=== PATIENT | male | born 1945 | race Caucasian/White ===

== ENCOUNTER 2019-09-08 16:59 | Observation (INO) ==
[2019-09-08] MEDS ORDERED: CEFEPIME 2,000 MG/20 ML VIAL IV STA (17:40)
[2019-09-08] MEDS ORDERED: SODIUM CHLORIDE 0.9% 500 ML IV ONE ×2 (17:40→20:05)
[2019-09-08] MEDS ORDERED: ACETAMINOPHEN 1,000 MG/100 ML VIAL IV STA (17:40)
--- NOTE | 2019-09-08 17:46 | Emergency Department Note ---
Impression & Plan Weakness, Fever, Atrial fibrillation, Bilateral leg pain ED Provider Note NAME: CHARLES JENNINGS AGE: 74 SEX: M : 1945 ARRIVES VIA: Ambulance INFORMANT: [Patient][ems, resident staff] ED PROVIDER(S): [Abraham Holloway MD] CHIEF COMPLAINT: Possible sepsis HISTORY OF PRESENT ILLNESS: The patient is a 74-year-old male who presents to the ER with weakness, a difficult time walking, pain in both his legs and fever. The patient was taken to the [place] [facility] on the , 3 days ago. He was sent to [facility] for atrial fibrillation. He was discharged today and upon arrival at his care facility, seemed to be very weak and achy and had a hard time walking. He was noted to have a fever. There was concern for sepsis so he was sent to the ED. Of note, he has tested negative for coronavirus very recently. The patient is a very poor historian. He complains of feet pain. He is unable to really answer questions appropriately. He does have dementia. Given the mental state, no further history obtainable. REVIEW OF SYSTEMS: Unobtainable given his mental state/dementia. PMHx/PSHx: See Below SOCIAL HISTORY: See Below. PHYSICAL EXAM: GENERAL: Patient is in no acute distress. HEENT: No acute trauma, normocephalic atraumatic, mucous membranes dry, no nasal congestion, no scleral icterus. NECK: No stridor, no adenopathy, no meningismus, trachea is midline. LUNGS: Clear to auscultation bilaterally when listening anterior, no wheeze, no rhonchi, breath sounds equal. HEART: Irregular rhythm, no murmurs, normal rate. ABDOMEN: Soft, nontender, bowel sounds positive, no hernias, no peritonitis. EXTREMITIES: No cyanosis or edema, full range of motion of all the joints without pain or difficulty, no signs for acute trauma. He does have bandages on both heels, there is no surrounding erythema. NEUROLOGIC: Awake and alert, no acute motor or sensory deficits, no focal weakness. No speech slur. Dementia noted. SKIN: No rash, no jaundice, no diaphoresis. Groin: There is no scrotal erythema, he is circumcised. DIFFERENTIAL DIAGNOSIS: Sepsis, UTI, pneumonia, metabolic, electrolyte abnormalities, coronavirus, cardiac sources, intracerebral event, toxicologic, neurologic, as well as other pathologies. EMERGENCY DEPARTMENT COURSE/PROCEDURES: ECG: Indication was weakness. The EKG shows atrial fibrillation with diffuse nonspecific ST change. There may be an old inferior infarct. The rate is 106. The QTc is 390. There is no ST elevation. No PVCs. No old EKGs to use for comparison. Continuous Cardiac Monitoring: An order was placed for continuous cardiac monitoring. The monitor shows a rate of 89 with atrial fibrillation. MEDICAL DECISION MAKING: There is no leukocytosis. The patient is anemic with a hemoglobin of 10.3. I have no baseline hemoglobin for comparison. There is a normal platelet count. No coagulopathy. There is no significant electrolyte abnormality or kidney failure. No worrisome liver enzyme elevation. Lactic acid level is not elevated making severe sepsis less likely. EKG shows A. fib, no acute ischemic change. Urinalysis does not show evidence for infection. Chest film did not show any pneumonia or CHF. Rapid coronavirus testing returned negative. The patient was given IV Tylenol, IV cefepime and IV saline, he is currently resting fairly comfortably. The cause for the fever is unclear. The patient is too weak to stand and seems to complain of bilateral leg pain. He is in no condition to be discharged back to his care facility. Further work-up for the fever is warranted. I did speak with the patient however, with his dementia, I am not certain he understood his findings. I did speak with case management. The on-call hospitalist has been consulted. As per the nursing staff, the patient's is aware of the patient's need for hospitalization. Past Med/Surg History Medical History Atrial fibrillation (Acute) Dementia Social History Feels Safe at Home: Yes Smoking Status: Unknown if ever smoked Allergies Allergies Allergy/AdvReac Type Severity Reaction Status Date / Time codeine Allergy Unknown Unverified 09/08/19 18:53 Home Meds Home Medications Medication Instructions Recorded Confirmed acetaminophen [Tylenol] 650 mg PO Q6H PRN 09/08/19 09/08/19 apixaban [Eliquis] 5 mg PO BID 09/08/19 09/08/19 atorvastatin [Lipitor] 40 mg PO HS 09/08/19 09/08/19 bisacodyl [Dulcolax (bisacodyl)] 10 mg [place] DAILY PRN 09/08/19 09/08/19 clobetasol [Temovate] 1 applic TOPICAL BID 09/08/19 09/08/19 digoxin [Digox] 125 mcg PO QAM 09/08/19 09/08/19 diltiazem HCl [Cardizem CD] 240 mg PO QAM 09/08/19 09/08/19 diphenhydramine HCl [Benadryl 25 mg PO TID PRN 09/08/19 09/08/19 Allergy] ferrous sulfate 325 mg PO QAM 09/08/19 09/08/19 folic acid 1 mg PO QAM 09/08/19 09/08/19 furosemide [Lasix] 40 mg PO QAM 09/08/19 09/08/19 ipratropium-albuterol 3 ml INHALATION Q4H PRN 09/08/19 09/08/19 memantine [Namenda] 5 mg PO BID 09/08/19 09/08/19 menthol-zinc oxide [Calmoseptine] 1 applic TOPICAL BID PRN 09/08/19 09/08/19 methotrexate sodium 15 mg PO SA 09/08/19 09/08/19 metoprolol succinate [Toprol XL] 50 mg PO QAM 09/08/19 09/08/19 multivitamin,[id number] 1 tab PO QAM 09/08/19 09/08/19 [Therems-M] niacinamide [Niacin (niacinamide)] 500 mg PO QAM 09/08/19 09/08/19 potassium chloride [K-Tab] 10 meq PO BID 09/08/19 09/08/19 Results & Data (ED) Vital Signs Vital Signs - 24 hr 09/08/19 17:02 09/08/19 17:07 09/08/19 17:10 Temperature Temperature Source Pulse Rate 102 H 102 H 105 H Pulse Rate from SpO2 Sensor 101 H 99 H 108 H Respiratory Rate 18 15 19 Respiratory Effort / Characteristics Respiratory Depth Blood Pressure 128/80 Blood Pressure Mean 91 Blood Pressure Position Pulse Oximetry 97 Oxygen Delivery Method Sepsis Recent Fever Within 48 Hours Sepsis New/Unexplained Change in Mental Status Sepsis Action Taken by Nursing 09/08/19 17:13 09/08/19 17:20 09/08/19 17:30 Temperature 37.8 C H Temperature Source Oral Pulse Rate 98 H 100 H 101 H Pulse Rate from SpO2 Sensor 102 H 100 H Respiratory Rate 18 19 20 Respiratory Effort / Characteristics Non-Labored Respiratory Depth Normal Blood Pressure 128/80 Blood Pressure Mean 96 Blood Pressure Position Lying Pulse Oximetry 96 97 97 Oxygen Delivery Method Room Air Sepsis Recent Fever Within 48 Hours Yes Sepsis New/Unexplained Change in Mental Status No Sepsis Action Taken by Nursing No Action Required 09/08/19 17:40 09/08/19 17:49 09/08/19 17:50 Temperature Temperature Source Pulse Rate 95 H 97 H Pulse Rate from SpO2 Sensor 99 H 95 H Respiratory Rate 20 21 Respiratory Effort / Characteristics Respiratory Depth Blood Pressure Blood Pressure Mean Blood Pressure Position Pulse Oximetry 96 97 96 Oxygen Delivery Method Room Air Sepsis Recent Fever Within 48 Hours Sepsis New/Unexplained Change in Mental Status Sepsis Action Taken by Nursing 09/08/19 18:00 09/08/19 18:01 09/08/19 18:10 Temperature Temperature Source Pulse Rate 92 H 101 H 92 H Pulse Rate from SpO2 Sensor 95 H 101 H 98 H Respiratory Rate 20 19 19 Respiratory Effort / Characteristics Respiratory Depth Blood Pressure 102/77 Blood Pressure Mean 84 Blood Pressure Position Pulse Oximetry 96 95 94 Oxygen Delivery Method Sepsis Recent Fever Within 48 Hours Sepsis New/Unexplained Change in Mental Status Sepsis Action Taken by Nursing 09/08/19 18:20 09/08/19 18:30 09/08/19 18:31 Temperature 37.1 C Temperature Source Pulse Rate 95 H 102 H 93 H Pulse Rate from SpO2 Sensor 89 Respiratory Rate 21 16 19 Respiratory Effort / Characteristics Respiratory Depth Blood Pressure 101/67 Blood Pressure Mean 77 Blood Pressure Position Pulse Oximetry 96 Oxygen Delivery Method Sepsis Recent Fever Within 48 Hours Sepsis New/Unexplained Change in Mental Status Sepsis Action Taken by Nursing 09/08/19 19:00 09/08/19 19:30 09/08/19 20:00 Temperature 37.0 C Temperature Source Pulse Rate 94 H 96 H 86 Pulse Rate from SpO2 Sensor 93 H 97 H 88 Respiratory Rate 16 22 17 Respiratory Effort / Characteristics Respiratory Depth Blood Pressure 102/70 111/74 108/74 Blood Pressure Mean 79 79 77 Blood Pressure Position Pulse Oximetry 95 95 97 Oxygen Delivery Method Sepsis Recent Fever Within 48 Hours Sepsis New/Unexplained Change in Mental Status Sepsis Action Taken by Nursing 09/08/19 20:30 09/08/19 21:00 09/08/19 21:01 Temperature Temperature Source Pulse Rate 81 84 89 Pulse Rate from SpO2 Sensor Respiratory Rate 19 20 14 Respiratory Effort / Characteristics Respiratory Depth Blood Pressure 101/67 115/82 Blood Pressure Mean 71 100 Blood Pressure Position Pulse Oximetry 95 96 Oxygen Delivery Method Sepsis Recent Fever Within 48 Hours Sepsis New/Unexplained Change in Mental Status Sepsis Action Taken by Nursing 09/08/19 21:30 09/08/19 21:41 09/08/19 22:00 Temperature Temperature Source Pulse Rate Pulse Rate from SpO2 Sensor 95 H Respiratory Rate 16 Respiratory Effort / Characteristics Respiratory Depth Blood Pressure 128/98 116/75 Blood Pressure Mean 103 83 Blood Pressure Position Pulse Oximetry 94 Oxygen Delivery Method Sepsis Recent Fever Within 48 Hours Sepsis New/Unexplained Change in Mental Status Sepsis Action Taken by Nursing 09/08/19 22:01 09/08/19 22:30 09/08/19 22:31 Temperature Temperature Source Pulse Rate 89 Pulse Rate from SpO2 Sensor Respiratory Rate 16 16 16 Respiratory Effort / Characteristics Respiratory Depth Blood Pressure 99/66 L Blood Pressure Mean 68 Blood Pressure Position Pulse Oximetry 95 Oxygen Delivery Method Sepsis Recent Fever Within 48 Hours Sepsis New/Unexplained Change in Mental Status Sepsis Action Taken by [facility] Medications Current Medication List: was personally reviewed by me Laboratory Data Attestation: I reviewed the patient's lab results. Result diagrams: 09/08/19 17:10 09/08/19 18:45 Lab Results 09/08/19 09/08/19 09/08/19 Range/Units 17:10 17:10 17:10 WBC 7.91 (4.8-10.8) K/uL RBC 3.51 L (4.7-6.1) M/uL Hgb 10.3 L (14.0-18.0) g/dL Hct 30.6 L (42-52) % MCV 87.2 (80-100) fL MCH 29.3 (25-34) pg MCHC 33.7 (32-36) g/dL RDW Std Deviation 47.5 H (36.4-46.3) fL RDW Coeff of Rashard 15.3 H (11.5-14.5) % Plt Count 269 (130-400) K/uL MPV 9.4 (7.4-10.4) fL Immature Gran % (Auto) 0.4 % Neut % (Auto) 77.3 % Lymph % (Auto) 9.5 % Cassia % (Auto) 12.3 % Eos % (Auto) 0.4 % Baso % (Auto) 0.1 % Immature Gran # (Auto) 0.03 H (0.00-0.02) K/uL Neut # (Auto) 6.12 (1.4-6.5) K/uL Lymph # (Auto) 0.75 L (1.2-3.4) K/uL Cassia # (Auto) 0.97 H (0.11-0.59) K/uL Eos # (Auto) 0.03 (0-0.5) K/uL Baso # (Auto) 0.01 (0-0.2) K/uL PT Cancelled INR Cancelled APTT Cancelled PTT Ratio Cancelled Sodium Cancelled Potassium Cancelled Chloride Cancelled Carbon Dioxide Cancelled Anion Gap Cancelled BUN Cancelled Creatinine Cancelled Est Cr Clr Drug Dosing Cancelled Est GFR ( Amer) Cancelled Est GFR (Non-Af Amer) Cancelled BUN/Creatinine Ratio Cancelled Glucose Cancelled Lactate (0.4-2.0) mmol/L Calcium Cancelled Magnesium Cancelled Total Bilirubin Cancelled AST Cancelled ALT Cancelled Alkaline Phosphatase Cancelled Troponin I Cancelled Total Protein Cancelled Albumin Cancelled Globulin Cancelled Albumin/Globulin Ratio Cancelled Procalcitonin Urine Color Urine Appearance (Clear) Urine pH (4.5-7.5) Ur Specific [place] (1.000-1.030) Urine Protein (Negative) Urine Glucose (UA) (Negative) Urine Ketones (Negative) Urine Blood (Negative) Urine Nitrite (Negative) Urine Bilirubin (Negative) Urine Urobilinogen (Negative) Ur Leukocyte Esterase (Negative) Urine WBC (Auto) (0-5) /hpf Urine RBC (Auto) (0-4) /hpf U Hyaline Cast (Auto) (0-5) /lpf U Epithel Cells (Auto) (0-5) /lpf Urine Bacteria (Auto) (Negative) COVID-19 PCR (Negative) 09/08/19 09/08/19 09/08/19 Range/Units 17:10 17:45 18:19 WBC (4.8-10.8) K/uL RBC (4.7-6.1) M/uL Hgb (14.0-18.0) g/dL Hct (42-52) % MCV (80-100) fL MCH (25-34) pg MCHC (32-36) g/dL RDW Std Deviation (36.4-46.3) fL RDW Coeff of Rashard (11.5-14.5) % Plt Count (130-400) K/uL MPV (7.4-10.4) fL Immature Gran % (Auto) % Neut % (Auto) % Lymph % (Auto) % Cassia % (Auto) % Eos % (Auto) % Baso % (Auto) % Immature Gran # (Auto) (0.00-0.02) K/uL Neut # (Auto) (1.4-6.5) K/uL Lymph # (Auto) (1.2-3.4) K/uL Cassia # (Auto) (0.11-0.59) K/uL Eos # (Auto) (0-0.5) K/uL Baso # (Auto) (0-0.2) K/uL PT INR APTT PTT Ratio Sodium Potassium Chloride Carbon Dioxide Anion Gap BUN Creatinine Est Cr Clr Drug Dosing Est GFR ( Amer) Est GFR (Non-Af Amer) BUN/Creatinine Ratio Glucose Lactate 0.8 (0.4-2.0) mmol/L Calcium Magnesium Total Bilirubin AST ALT Alkaline Phosphatase Troponin I Total Protein Albumin Globulin Albumin/Globulin Ratio Procalcitonin Cancelled Urine Color Dark Yellow Urine Appearance Clear (Clear) Urine pH 5.0 (4.5-7.5) Ur Specific [place] 1.022 (1.000-1.030) Urine Protein Trace H (Negative) Urine Glucose (UA) Negative (Negative) Urine Ketones 1+ H (Negative) Urine Blood Negative (Negative) Urine Nitrite Negative (Negative) Urine Bilirubin Negative (Negative) Urine Urobilinogen Negative (Negative) Ur Leukocyte Esterase Negative (Negative) Urine WBC (Auto) 1-5 (0-5) /hpf Urine RBC (Auto) 0-4 (0-4) /hpf U Hyaline Cast (Auto) 0 (0-5) /lpf U Epithel Cells (Auto) 0-5 (0-5) /lpf Urine Bacteria (Auto) Negative (Negative) COVID-19 PCR (Negative) 09/08/19 09/08/19 09/08/19 Range/Units 18:45 18:45 20:00 WBC (4.8-10.8) K/uL RBC (4.7-6.1) M/uL Hgb (14.0-18.0) g/dL Hct (42-52) % MCV (80-100) fL MCH (25-34) pg MCHC (32-36) g/dL RDW Std Deviation (36.4-46.3) fL RDW Coeff of Rashard (11.5-14.5) % Plt Count (130-400) K/uL MPV (7.4-10.4) fL Immature Gran % (Auto) % Neut % (Auto) % Lymph % (Auto) % Cassia % (Auto) % Eos % (Auto) % Baso % (Auto) % Immature Gran # (Auto) (0.00-0.02) K/uL Neut # (Auto) (1.4-6.5) K/uL Lymph # (Auto) (1.2-3.4) K/uL Cassia # (Auto) (0.11-0.59) K/uL Eos # (Auto) (0-0.5) K/uL Baso # (Auto) (0-0.2) K/uL PT 11.9 INR 1.1 APTT 35.5 H PTT Ratio 1.3 Sodium 133 L Potassium 4.0 Chloride 102 Carbon Dioxide 23 Anion Gap 8.0 BUN 15 Creatinine 0.59 L Est Cr Clr Drug Dosing Not Reportable Est GFR ( Amer) 114.8 Est GFR (Non-Af Amer) 99.0 BUN/Creatinine Ratio 25.2 H Glucose 96 Lactate (0.4-2.0) mmol/L Calcium 8.0 L Magnesium 2.0 Total Bilirubin 0.6 AST 17 ALT 15 Alkaline Phosphatase 67 Troponin I Total Protein 6.0 L Albumin 2.4 L Globulin 3.6 Albumin/Globulin Ratio 0.7 L Procalcitonin Urine Color Urine Appearance (Clear) Urine pH (4.5-7.5) Ur Specific [place] (1.000-1.030) Urine Protein (Negative) Urine Glucose (UA) (Negative) Urine Ketones (Negative) Urine Blood (Negative) Urine Nitrite (Negative) Urine Bilirubin (Negative) Urine Urobilinogen (Negative) Ur Leukocyte Esterase (Negative) Urine WBC (Auto) (0-5) /hpf Urine RBC (Auto) (0-4) /hpf U Hyaline Cast (Auto) (0-5) /lpf U Epithel Cells (Auto) (0-5) /lpf Urine Bacteria (Auto) (Negative) COVID-19 PCR NEGATIVE (Negative) Administered Medications Discontinued Medications Sodium Chloride (Nss) 500 mls @ 999 mls/hr IV .Q31M ONE Stop: 09/08/19 18:10 Last Infusion: 09/08/19 18:38 Dose: 0 mls/hr Documented by: [id number] Admin: 09/08/19 17:53 Dose: 999 mls/hr Documented by: [id number] Cefepime HCl (Maxipime) 2,000 mg in 20 mls @ 5 mls/min IV NOW STA; Protocol Stop: 09/08/19 17:43 Last Admin: 09/08/19 18:47 Dose: 5 mls/min Documented by: [id number] Acetaminophen (Ofirmev) 1,000 mg in 100 mls @ 400 mls/hr IV NOW STA Stop: 09/08/19 17:54 Last Infusion: 09/08/19 18:38 Dose: 0 mls/hr Documented by: [id number] Admin: 09/08/19 17:53 Dose: 400 mls/hr Documented by: [id number] Sodium Chloride (Nss) 500 mls @ 999 mls/hr IV .Q31M ONE Stop: 09/08/19 20:35 Last Infusion: 09/08/19 21:34 Dose: 0 mls/hr Documented by: [id number] Infusion: 09/08/19 20:22 Dose: 500 mls/hr Documented by: [id number] Admin: 09/08/19 20:21 Dose: 999 mls/hr Documented by: [id number] Imaging Data Radiologist's Impression: XR chest 1V portable HISTORY: 74 years-old Male SEPSIS acute sepsis COMPARISON: None TECHNIQUE: Portable AP view of the chest FINDINGS: Cardiac silhouette is mildly enlarged. Blunting of the costophrenic angles. No pneumothorax, large pleural effusion, overt pulmonary edema or airspace co nsolidation typical for pneumonia. Left shoulder rotator cuff calcific tendinosis. Degenerative changes of the shoulders and spine. IMPRESSION: 1. Cardiomegaly without overt pulmonary edema. 2. Blunting of the costophrenic angles may be secondary to trace effusions versus atelectasis/scarring. Blood Pressure Blood Pressure Findings: Normal blood pressure Blood Pressure Disposition: further management by hospitalist Discharge Plan Visit Data *Final* Discharge Date/Time: 09/08/19 23:57 Chief Complaint: Illness ED Provider: Abraham Holloway Discharge Problem: Weakness, Fever, Atrial fibrillation, Bilateral leg pain Patient Disposition: Admitted As Inpatient Condition: Fair Discharge Instructions Interventions: ED Discharge Assessment Last Done: 09/08/19 23:57 Discharge Problem: Fever Qualifiers: Fever type: unspecified Qualified Code(s): R50.9 - Fever, unspecified Atrial fibrillation Qualifiers: Atrial fibrillation type: unspecified Qualified Code(s): I48.91 - Unspecified atrial fibrillation
[2019-09-08 18:00] LABS: Basophils # (auto) 0.01 K/uL (0-0.2); Basophils % (auto) 0.1 %; Eosinophils # (auto) 0.03 K/uL (0-0.5); Eosinophils % (auto) 0.4 %; Hematocrit (blood only) 30.6 % (42-52); Hemoglobin 10.3 g/dL (14.0-18.0); Immature Granulocytes # (auto) 0.03 K/uL (0.00-0.02); Immature Granulocytes % (auto) 0.4 %; Lymphocytes # (auto) 0.75 K/uL (1.2-3.4); Lymphocytes % (auto) 9.5 %; Mean Corpuscular Hemoglobin 29.3 pg (25-34); Mean Corpuscular Hgb Conc 33.7 g/dL (32-36); Mean Corpuscular Volume 87.2 fL (80-100); Mean Platelet Volume 9.4 fL (7.4-10.4); Monocytes # (auto) 0.97 K/uL (0.11-0.59); Monocytes % (auto) 12.3 %; Neutrophils # (auto) 6.12 K/uL (1.4-6.5); Neutrophils % (auto) 77.3 %; Platelet Count 269 K/uL (130-400); RDW Coefficient of Variation 15.3 % (11.5-14.5); RDW Standard Deviation 47.5 fL (36.4-46.3); Red Blood Count 3.51 M/uL (4.7-6.1); White Blood Count 7.91 K/uL (4.8-10.8)
[2019-09-08 18:06] LABS: Appearance Urine Clear (Clear); Bacteria Urine Automated Negative (Negative); Bilirubin Urine Negative (Negative); Blood Urine Negative (Negative); Cast Urine Automated 0 /lpf (0-5); Color Urine Dark Yellow; Epithelial Cell Urine Auto 0-5 /lpf (0-5); Glucose Urine UA Negative (Negative); Ketones Urine 1+ (Negative); Leukocyte Esterase Urine Negative (Negative); Nitrite Urine Negative (Negative); Protein Urine Trace (Negative); RBC Urine Automated 0-4 /hpf (0-4); Specific Gravity Urine 1.022 (1.000-1.030); Urobilinogen Urine Negative (Negative)
--- NOTE | 2019-09-08 18:57 | XRay Report ---
XR chest 1V portable HISTORY: 74 years-old Male SEPSIS acute sepsis COMPARISON: None TECHNIQUE: Portable AP view of the chest FINDINGS: Cardiac silhouette is mildly enlarged. Blunting of the costophrenic angles. No pneumothorax, large pl eural effusion, overt pulmonary edema or airspace consolidation typical for pneumonia. Left shoulder rotator cuff calcific tendinosis. Degenerative changes of the shoulders and spine. IMPRESSION: 1. Cardiomegaly without overt pulmonary edema. 2. Blunting of the costophrenic angles may be secondary to trace effusions versus atelectasis/scarrin g. ACT 112: Negative or not required by law. The above report was generated using voice recognition software. It may contain grammatical, syntax o r spelling errors. Electronically signed by: Gary Rod M.D. 09/08/2019 6:55 PM
[2019-09-08 19:08] LABS: INR 1.1 (0.9-1.1); Partial Thromboplastin Ratio 1.3; Partial Thromboplastin Time 35.5 Seconds (21.0-31.0); Prothrombin Time 11.9 Seconds (9.0-12.0)
[2019-09-08 19:16] LABS: Alanine Aminotransferase 15 U/L (12-78); Albumin Level 2.4 gm/dl (3.4-5.0); Aspartate Aminotransferase 17 U/L (15-37); BUN Creatinine Ratio 25.2 (10-20); Blood Urea Nitrogen 15 mg/dl (7-18); Carbon Dioxide 23 mmol/L (21-32); Chloride 102 mmol/L (98-107); Est GFR (African American) 114.8; Glucose 96 mg/dl (70-99); Sodium 133 mmol/L (136-145)
[2019-09-08 19:19] LABS: Albumin Globulin Ratio 0.7 (0.9-2); Alkaline Phosphatase 67 U/L (45-117); Bilirubin,Total 0.6 mg/dl (0.2-1); Globulin 3.6 gm/dl (2.5-4.0)
[2019-09-09] MEDS ORDERED: ZOLPIDEM TARTRATE 5 MG TAB PO PRN (00:25)
[2019-09-09] MEDS ORDERED: ALBUT/IPRATROP 3MG/0.5MG NEB 3 ML VIAL INH PRN (00:25)
[2019-09-09] MEDS ORDERED: MAGNESIUM HYDROXIDE SUSP 30 ML UDC PO PRN (00:25)
[2019-09-09] MEDS ORDERED: ONDANSETRON INJ 2 MG/ML 2 ML VIAL IV PRN (00:25)
[2019-09-09] MEDS ORDERED: ALUMINUM/MAGNESIUM SUSP 30 ML UDC PO PRN (00:25)
[2019-09-09] MEDS ORDERED: POLYETHYLENE (MIRALAX) 17 GM PACK PO PRN (00:25)
--- NOTE | 2019-09-09 00:46 | History & Physical Report ---
Date of Service September 09, 2019 Assessment & Plan (1) Weakness: Mr. Fagan is a 74 yo male with underlying dementia who presented to [facility] after being discharged from [facility] today for re- evaluation of weakness and difficultly walking. - on admission patient had a fever of 37.8. He was mildly tachycardic (HR 105 bpm) and had one recorded RR > 20 - all vitals have since normalized (patient was given anti-pyretic) - there was initial concern for sepsis given the above findings and continued weakness - WBC normal. Lactate normal. Procal ordered. Blood cultures drawn - recommend contacting [facility] for blood culture results drawn on 09/05 - UA unremarkable - CXR showing no active disease - no cellulitis on skin exam - patient administered a dose of cefepime in the ED; we will hold off any further antibiotic therapy at this time given no obvious source of infection - repeat CBC in AM for continued surveillance of infectious process - suspicious that patient's weakness represents deconditioning rather than acute septic process. - PT/OT ordered (2) Fever: - Tmax 37.9 - normalized with Tylenol (3) Atrial fibrillation: - on chronic anticoagulation with Eliqus - continue home rate control regimen with Metoprolol 50mg qAM and diltiazem 240mg qAM - continue home digoxin 125 mcg (4) Dementia: - severity is unknown - continue home memantime Dispo: Med/Surg Diet: Heart Healthy DVT ppx: on Coumadin Code: DNR/DNI, per halfway documentation Admission and Anticipated Discharge Date Admission Date: September 08, 2019 History of Present Illness Primary Care Provider: Luciano Huerta Mr. Fagan is a 74 yo gentleman with a history of underlying dementia who presented to the ED for weakness and difficulty walking secondary to leg pain. Of note Mr. Fagan was taken to [place] ED 3 days ago and subsequently transferred to [facility] for management of A-fib with RVR. He was discharged from [facility] earlier today to his residence at [facility]. However, upon arrival to this facility, he was weak and unable to walk. Caregivers sent to him to [facility] with concern for sepsis. On review of records from [facility], patient's RVR was successfully treated with a diltiazem drip. His digoxin level at was drawn at 0.68. WBC was 6.33, blood cultures were obtained on 09/05. Head and C-spine CT showed no acute processes. XR of pelvis, left elbow and bilateral knees showed no acute pathology, although he does have bilateral knee osteoarthritis. Mr. Fagan was evaluated by physical therapy at [facility], who recommended SNF placement. However's patients insisted that he be discharged home to [facility]. 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 Fagan is a 2 assist to stand at baseline and stated they could provide appropriate care for him. ED course: Patient arrived with a temperature of 37.8 degrees celcius. He was tachycardic in the low 100s. COVID testing negative. WBC normal. Lactate 0.8. Blood cultures obtained. UA unremarkable. Hg 10.3, MCV 87. Na low at 133. CXR showing no acute process. EKG showing A-fib at 106. Allergies Allergy/AdvReac Type Severity Reaction Status Date / Time codeine Allergy Unknown Unverified 09/08/19 18:53 Home Medications Home Medications Medication Instructions Recorded Confirmed Type acetaminophen [Tylenol] 650 mg PO Q6H PRN 09/08/19 09/08/19 History apixaban [Eliquis] 5 mg PO BID 09/08/19 09/08/19 History atorvastatin [Lipitor] 40 mg PO HS 09/08/19 09/08/19 History bisacodyl [Dulcolax (bisacodyl)] 10 mg MA DAILY PRN 09/08/19 09/08/19 History clobetasol [Temovate] 1 applic TOPICAL BID 09/08/19 09/08/19 History digoxin [Digox] 125 mcg PO QAM 09/08/19 09/08/19 History diltiazem HCl [Cardizem CD] 240 mg PO QAM 09/08/19 09/08/19 History diphenhydramine HCl [Benadryl 25 mg PO TID PRN 09/08/19 09/08/19 History Allergy] ferrous sulfate 325 mg PO QAM 09/08/19 09/08/19 History folic acid 1 mg PO QAM 09/08/19 09/08/19 History furosemide [Lasix] 40 mg PO QAM 09/08/19 09/08/19 History ipratropium-albuterol 3 ml INHALATION Q4H PRN 09/08/19 09/08/19 History memantine [Namenda] 5 mg PO BID 09/08/19 09/08/19 History menthol-zinc oxide [Calmoseptine] 1 applic TOPICAL BID PRN 09/08/19 09/08/19 History methotrexate sodium 15 mg PO SA 09/08/19 09/08/19 History metoprolol succinate [Toprol XL] 50 mg PO QAM 09/08/19 09/08/19 History multivitamin,pw-uhwu-ddobgkel 1 tab PO QAM 09/08/19 09/08/19 History [Therems-M] niacinamide [Niacin (niacinamide)] 500 mg PO QAM 09/08/19 09/08/19 History potassium chloride [K-Tab] 10 meq PO BID 09/08/19 09/08/19 History Past Med/Surg History Medical History Atrial fibrillation (Acute) Dementia Social History Preferred Language: Citizen Of [place] Communication Ability: Impaired Beliefs That Will Affect Care: None marital status: Current Living Situation: Long Term Other Information That Helps Us Care for You: No Feels Safe at Home: Yes Safety Concerns: Feels Safe At This Time Smoking Status: Never smoker Hx Alcohol Use: No Hx Substance Use: No Review of Systems Review of Systems: Difficult to obtain due to cognitive status Integumentary: + pruritus Physical Exam Constitutional: WD/WN, vitals as above no acute distress Unable to engage in meaningful conversation. At times do not respond to questioning. Patient is itching various parts of his body throughout encounter Eyes: + anicteric sclerae ENMT: external ear and nose normal, oropharynx normal Ears: + hearing impairment Neck: normal visual inspection and trachea midline Respiratory: normal respiratory effort, lungs clear to auscultation Auscultation: no crackles Cardiovascular: Rate/Rhythm: + tachycardic and + irregularly irregular Heart Sounds: normal S1 and normal S2 Vessels: dorsalis pedis pulses present Extremities: no pedal edema Chest (Breasts): Chest: + abnormal inspection of chest (pectus excavatum ) Gastrointestinal (Abdomen): normal bowel sounds, soft, nontender, no hepatosplenomegaly Musculoskeletal: Extremities: extremities normal to inspection; no joint enlargement, leg not internally rotated, leg not externally rotated and no lower leg abnormality Skin: no rashes, warm and dry + nails discolored (+ scale in between toes) and + nails dystrophic + excoriations on b/l abdomen and in area of the body reachable by hands Results & Data Results & Data ([facility]) Vital Signs (Past 12 Hours) Vital Signs Temp Pulse Resp BP Pulse Ox 09/08/19 23:57 36.6 C 88 16 98 09/08/19 23:30 101 H 17 137/82 98 09/08/19 23:00 88 18 120/74 96 09/08/19 22:31 16 09/08/19 22:30 16 99/66 L 09/08/19 22:01 89 16 95 09/08/19 22:00 16 116/75 09/08/19 21:41 94 09/08/19 21:30 128/98 09/08/19 21:01 89 14 09/08/19 21:00 84 20 115/82 96 09/08/19 20:30 81 19 101/67 95 09/08/19 20:00 37.0 C 86 17 108/74 97 09/08/19 19:30 96 H 22 111/74 95 09/08/19 19:00 94 H 16 102/70 95 09/08/19 18:31 93 H 19 09/08/19 18:30 37.1 C 102 H 16 101/67 09/08/19 18:20 95 H 21 96 09/08/19 18:10 92 H 19 94 09/08/19 18:01 101 H 19 95 09/08/19 18:00 92 H 20 102/77 96 09/08/19 17:50 97 H 21 96 09/08/19 17:49 97 09/08/19 17:40 95 H 20 96 09/08/19 17:30 101 H 20 97 09/08/19 17:20 100 H 19 97 09/08/19 17:13 37.8 C H 98 H 18 128/80 96 09/08/19 17:10 105 H 19 97 09/08/19 17:07 102 H 15 09/08/19 17:02 102 H 18 128/80 Supervising Physician Co-Signing Physician Notes Attending addendum: I have physically seen this patient, have supervised the medical residents activities, and agree with the H&P unless as otherwise noted. Assessment and Plan: Febrile illness, generalized weakness and tachycardia/status post discharge from [facility] 2 boys earlier in the day- Follow urine cultures as noted and blood cultures. Given cefepime empirically in the ED. Monitor for any symptoms before additional device prescribed. Follow serial CBC with differential, chemistry profile and magnesium level. Assessment by PT/OT. Gentle rehydration with IV fluids Atrial fibrillation/hypertension- Continue metoprolol, diltiazem, digoxin and Eliquis. Check a digoxin level. Dementia- Continue memantine. Remainder of orders and notations as noted. Resident Activity Tracking Resident Involvement: Resident Care Provided Care Provided: Adult Hospital Medicine (1) Fever Fever type: unspecified Qualified Code(s): R50.9 - Fever, unspecified (2) Atrial fibrillation Atrial fibrillation type: unspecified Qualified Code(s): I48.91 - Unspecified atrial fibrillation
--- NOTE | 2019-09-09 06:55 | Electrocardiogram Report ---
Test Reason : Blood Pressure : / mmHG Vent. Rate : 106 BPM Atrial Rate : 117 BPM P-R Int : 000 ms QRS Dur : 074 ms QT Int : 294 ms P-R-T Axes : 000 270 077 degrees QTc Int : 390 ms Atrial fibrillation with rapid ventricular response Left axis deviation Inferior infarct Abnormal ECG No previous ECGs available Confirmed by Hussain Peck ([id number]) on 09/09/2019 6:55:36 AM Referred By: REFERRED SELF Confirmed By:Hussain Peck
[2019-09-09] MEDS: dilTIAZem HCL 240 MG CAPCR PO SCH (08:33)
[2019-09-09] MEDS: FUROSEMIDE 40 MG TAB PO SCH (08:33)
[2019-09-09] MEDS: POTASSIUM CHLORIDE 10 MEQ TABCR PO SCH ×2 (08:33→20:32)
[2019-09-09] MEDS: FOLIC ACID 1 MG TAB PO SCH (08:33)
[2019-09-09] MEDS: CLOBETASOL PROPIONATE 0.05% OINT 15 GM TUBE EXT SCH ×2 (08:34→20:31)
[2019-09-09] MEDS: METOPROLOL SUCC 50MG EXT REL TAB PO SCH (08:34)
[2019-09-09] MEDS: APIXABAN 5 MG TABLET PO SCH ×2 (08:34→20:32)
[2019-09-09] MEDS: MEMANTINE HCL 5 MG TAB PO SCH ×2 (08:34→20:32)
[2019-09-09] MEDS: FERROUS SULFATE 325 MG TAB PO SCH (08:34)
[2019-09-09] MEDS ORDERED: metHOTREXate sodium 2.5 MG TAB PO SCH (09:00)
[2019-09-09 09:19] LABS: Basophils # (auto) 0.02 K/uL (0-0.2); Basophils % (auto) 0.3 %; Eosinophils # (auto) 0.25 K/uL (0-0.5); Hematocrit (blood only) 30.6 % (42-52); Hemoglobin 10.3 g/dL (14.0-18.0); Immature Granulocytes # (auto) 0.02 K/uL (0.00-0.02); Immature Granulocytes % (auto) 0.3 %; Lymphocytes % (auto) 12.7 %; Mean Corpuscular Hemoglobin 29.9 pg (25-34); Mean Corpuscular Hgb Conc 33.7 g/dL (32-36); Mean Corpuscular Volume 88.7 fL (80-100); Mean Platelet Volume 9.2 fL (7.4-10.4); Monocytes # (auto) 0.87 K/uL (0.11-0.59); Monocytes % (auto) 13.8 %; Neutrophils # (auto) 4.36 K/uL (1.4-6.5); Neutrophils % (auto) 68.9 %; Platelet Count 263 K/uL (130-400); RDW Coefficient of Variation 15.2 % (11.5-14.5); RDW Standard Deviation 49.2 fL (36.4-46.3); Red Blood Count 3.45 M/uL (4.7-6.1); White Blood Count 6.32 K/uL (4.8-10.8)
--- NOTE | 2019-09-09 12:57 | Hospitalist Progress Note ---
Date of Service September 09, 2019 Assessment & Plan (1) Weakness: Mr. Fagan is a 74 yo male with underlying dementia who presented to [facility] after being discharged from [facility] today for re- evaluation of weakness and difficultly walking. - no signs of infection at this time, no further antibiotics planned, blood cultures will be followed - weakness likely due to deconditioning - left leg very weak, ask HIM to get records to know what was done, work up, treatment at [facility] - PT/OT ordered (2) Fever: - Tmax 37.9 - no further fever today, hold on further antibiotics (3) Atrial fibrillation: - on chronic anticoagulation with Eliqus - continue home rate control regimen with Metoprolol 50mg qAM and diltiazem 240mg qAM - continue home digoxin 125 mcg rates are well controlled, low 100's (4) Dementia: - severity is unknown - continue home memantime Dispo: Med/Surg Diet: Heart Healthy DVT ppx: on Coumadin Code: DNR/DNI, per senior care documentation plan for rehab Admission and Anticipated Discharge Date Admission Date: September 08, 2019 Subjective patient is confused at baseline tells me he is frustrated because he wants to get up and walk, he is just too weak he says he was at [facility] but cannot tell me why he cannot tell me where he lives, chart review shows that he is at SNF he was a [facility] for three days, then [facility] for afib, then discharged, came to ED for weakness low grade fever but no obvious signs of infection other than the weakness, he has no complaints he has a lot of weakness in left leg, cannot raise it up, he cannot tell me if this is new asked HIM to obtain discharge summary from [facility] to determine what work up/treatment he had there Review of Systems Review of Systems: Unobtainable due to cognitive status Physical Exam Constitutional: WD/WN, vitals as above Eyes: PERRL, conjunctivae normal, anicteric sclerae ENMT: external ear and nose normal, oropharynx normal Neck: trachea midline, no thyromegaly Respiratory: normal respiratory effort, lungs clear to auscultation Cardiovascular: Rate/Rhythm: + tachycardic and + irregularly irregular Heart Sounds: normal S1 and normal S2; no murmur Vessels: no JVD Extremities: normal capillary refill; no edema Gastrointestinal (Abdomen): normal bowel sounds, soft, nontender, no hepatosplenomegaly Musculoskeletal: Head/Neck/Chest: normocephalic, head atraumatic and neck supple Extremities: extremities normal to inspection and + abnormal strength (left leg weak, 3/5 strength, can wiggle toes); no cyanosis, no clubbing and no petechiae Skin: no rashes, warm and dry Neurologic: patellar DTR's 2+ bilat, sensation intact and PERRL, EOMI, accommodation nl, no face palsy, no dysarthria Psychiatric: Orientation: alert, oriented to person and cooperative; + not oriented to place and + not oriented to time Lymphatic: no cervical or axillary lymphadenopathy Results & Data Results & Data ([facility]) Vital Signs (Past 12 Hours) Vital Signs Temp Pulse Pulse Resp BP Pulse Ox 09/09/19 11:40 36.8 C 112 H 18 124/79 97 09/09/19 07:34 37.1 C 111 H 18 134/80 98 09/09/19 07:30 105 H 09/09/19 04:07 36.7 C 104 H 22 140/85 99 Laboratory Results Laboratory Results - last 24 hr 09/08/19 09/08/19 09/08/19 17:10 17:10 17:10 WBC 7.91 RBC 3.51 L Hgb 10.3 L Hct 30.6 L MCV 87.2 MCH 29.3 MCHC 33.7 RDW Std Deviation 47.5 H RDW Coeff of Rashard 15.3 H Plt Count 269 MPV 9.4 Immature Gran % (Auto) 0.4 Neut % (Auto) 77.3 Lymph % (Auto) 9.5 Barren % (Auto) 12.3 Eos % (Auto) 0.4 Baso % (Auto) 0.1 Immature Gran # (Auto) 0.03 H Neut # (Auto) 6.12 Lymph # (Auto) 0.75 L Barren # (Auto) 0.97 H Eos # (Auto) 0.03 Baso # (Auto) 0.01 PT Cancelled INR Cancelled APTT Cancelled PTT Ratio Cancelled Sodium Cancelled Potassium Cancelled Chloride Cancelled Carbon Dioxide Cancelled Anion Gap Cancelled BUN Cancelled Creatinine Cancelled Est Cr Clr Drug Dosing Cancelled Est GFR ( Amer) Cancelled Est GFR (Non-Af Amer) Cancelled BUN/Creatinine Ratio Cancelled Glucose Cancelled Lactate Calcium Cancelled Magnesium Cancelled Total Bilirubin Cancelled AST Cancelled ALT Cancelled Alkaline Phosphatase Cancelled Troponin I Cancelled Total Protein Cancelled Albumin Cancelled Globulin Cancelled Albumin/Globulin Ratio Cancelled Vitamin B12 Folate Procalcitonin Urine Color Urine Appearance Urine pH Ur Specific [place] Urine Protein Urine Glucose (UA) Urine Ketones Urine Blood Urine Nitrite Urine Bilirubin Urine Urobilinogen Ur Leukocyte Esterase Urine WBC (Auto) Urine RBC (Auto) U Hyaline Cast (Auto) U Epithel Cells (Auto) Urine Bacteria (Auto) Nasal Screen MRSA (PCR) COVID-19 PCR 09/08/19 09/08/19 09/08/19 17:10 17:45 18:19 WBC RBC Hgb Hct MCV MCH MCHC RDW Std Deviation RDW Coeff of Rashard Plt Count MPV Immature Gran % (Auto) Neut % (Auto) Lymph % (Auto) Barren % (Auto) Eos % (Auto) Baso % (Auto) Immature Gran # (Auto) Neut # (Auto) Lymph # (Auto) Barren # (Auto) Eos # (Auto) Baso # (Auto) PT INR APTT PTT Ratio Sodium Potassium Chloride Carbon Dioxide Anion Gap BUN Creatinine Est Cr Clr Drug Dosing Est GFR ( Amer) Est GFR (Non-Af Amer) BUN/Creatinine Ratio Glucose Lactate 0.8 Calcium Magnesium Total Bilirubin AST ALT Alkaline Phosphatase Troponin I Total Protein Albumin Globulin Albumin/Globulin Ratio Vitamin B12 Folate Procalcitonin Cancelled Urine Color Dark Yellow Urine Appearance Clear Urine pH 5.0 Ur Specific [place] 1.022 Urine Protein Trace H Urine Glucose (UA) Negative Urine Ketones 1+ H Urine Blood Negative Urine Nitrite Negative Urine Bilirubin Negative Urine Urobilinogen Negative Ur Leukocyte Esterase Negative Urine WBC (Auto) 1-5 Urine RBC (Auto) 0-4 U Hyaline Cast (Auto) 0 U Epithel Cells (Auto) 0-5 Urine Bacteria (Auto) Negative Nasal Screen MRSA (PCR) COVID-19 PCR 09/08/19 09/08/19 09/08/19 18:45 18:45 20:00 WBC RBC Hgb Hct MCV MCH MCHC RDW Std Deviation RDW Coeff of Rashard Plt Count MPV Immature Gran % (Auto) Neut % (Auto) Lymph % (Auto) Barren % (Auto) Eos % (Auto) Baso % (Auto) Immature Gran # (Auto) Neut # (Auto) Lymph # (Auto) Barren # (Auto) Eos # (Auto) Baso # (Auto) PT 11.9 INR 1.1 APTT 35.5 H PTT Ratio 1.3 Sodium 133 L Potassium 4.0 Chloride 102 Carbon Dioxide 23 Anion Gap 8.0 BUN 15 Creatinine 0.59 L Est Cr Clr Drug Dosing Not Reportable Est GFR ( Amer) 114.8 Est GFR (Non-Af Amer) 99.0 BUN/Creatinine Ratio 25.2 H Glucose 96 Lactate Calcium 8.0 L Magnesium 2.0 Total Bilirubin 0.6 AST 17 ALT 15 Alkaline Phosphatase 67 Troponin I Total Protein 6.0 L Albumin 2.4 L Globulin 3.6 Albumin/Globulin Ratio 0.7 L Vitamin B12 Folate Procalcitonin Urine Color Urine Appearance Urine pH Ur Specific [place] Urine Protein Urine Glucose (UA) Urine Ketones Urine Blood Urine Nitrite Urine Bilirubin Urine Urobilinogen Ur Leukocyte Esterase Urine WBC (Auto) Urine RBC (Auto) U Hyaline Cast (Auto) U Epithel Cells (Auto) Urine Bacteria (Auto) Nasal Screen MRSA (PCR) COVID-19 PCR NEGATIVE 09/09/19 09/09/19 09/09/19 00:36 00:36 08:32 WBC 6.32 RBC 3.45 L Hgb 10.3 L Hct 30.6 L MCV 88.7 MCH 29.9 MCHC 33.7 RDW Std Deviation 49.2 H RDW Coeff of Rashard 15.2 H Plt Count 263 MPV 9.2 Immature Gran % (Auto) 0.3 Neut % (Auto) 68.9 Lymph % (Auto) 12.7 Barren % (Auto) 13.8 Eos % (Auto) 4.0 Baso % (Auto) 0.3 Immature Gran # (Auto) 0.02 Neut # (Auto) 4.36 Lymph # (Auto) 0.80 L Barren # (Auto) 0.87 H Eos # (Auto) 0.25 Baso # (Auto) 0.02 PT INR APTT PTT Ratio Sodium Potassium Chloride Carbon Dioxide Anion Gap BUN Creatinine Est Cr Clr Drug Dosing Est GFR ( Amer) Est GFR (Non-Af Amer) BUN/Creatinine Ratio Glucose Lactate Calcium Magnesium Total Bilirubin AST ALT Alkaline Phosphatase Troponin I Total Protein Albumin Globulin Albumin/Globulin Ratio Vitamin B12 Folate 22.45 Procalcitonin 0.13 Urine Color Urine Appearance Urine pH Ur Specific [place] Urine Protein Urine Glucose (UA) Urine Ketones Urine Blood Urine Nitrite Urine Bilirubin Urine Urobilinogen Ur Leukocyte Esterase Urine WBC (Auto) Urine RBC (Auto) U Hyaline Cast (Auto) U Epithel Cells (Auto) Urine Bacteria (Auto) Nasal Screen MRSA (PCR) COVID-19 PCR 09/09/19 09/09/19 08:32 Unknown WBC RBC Hgb Hct MCV MCH MCHC RDW Std Deviation RDW Coeff of Rashard Plt Count MPV Immature Gran % (Auto) Neut % (Auto) Lymph % (Auto) Barren % (Auto) Eos % (Auto) Baso % (Auto) Immature Gran # (Auto) Neut # (Auto) Lymph # (Auto) Barren # (Auto) Eos # (Auto) Baso # (Auto) PT INR APTT PTT Ratio Sodium Potassium Chloride Carbon Dioxide Anion Gap BUN Creatinine Est Cr Clr Drug Dosing Est GFR ( Amer) Est GFR (Non-Af Amer) BUN/Creatinine Ratio Glucose Lactate Calcium Magnesium Total Bilirubin AST ALT Alkaline Phosphatase Troponin I Total Protein Albumin Globulin Albumin/Globulin Ratio Vitamin B12 1109 H Folate Procalcitonin Urine Color Urine Appearance Urine pH Ur Specific [place] Urine Protein Urine Glucose (UA) Urine Ketones Urine Blood Urine Nitrite Urine Bilirubin Urine Urobilinogen Ur Leukocyte Esterase Urine WBC (Auto) Urine RBC (Auto) U Hyaline Cast (Auto) U Epithel Cells (Auto) Urine Bacteria (Auto) Nasal Screen MRSA (PCR) Negative COVID-19 PCR Medications Administered Current Inpatient Medications Al Hydrox/Mg Hydrox/Simethicone (Maalox) 15 ml PO Q4H PRN PRN Reason: Dyspepsia Stop: 10/09/19 00:24 Albuterol (Duoneb) 3 ml INH Q4H PRN PRN Reason: Shortness Of Breath Or Wheezing Stop: 10/09/19 00:24 Apixaban (Eliquis) 5 mg PO BID DORIS Stop: 10/09/19 08:59 Last Admin: 09/09/19 08:34 Dose: 5 mg Documented by: Atorvastatin Calcium (Lipitor) 40 mg PO HS DORIS Stop: 10/09/19 20:59 Calamine/Phenol (Calmoseptine) 1 appln EXT BID PRN PRN Reason: Skin Irritation Stop: 10/09/19 00:24 Clobetasol Propionate (Clobetasol Propionate Oint) 1 appln EXT BID [facility] Stop: 10/09/19 08:59 Last Admin: 09/09/19 08:34 Dose: 1 appln Documented by: Digoxin (Lanoxin) 0.125 mg PO DAILY@1600 [facility] Stop: 10/09/19 15:59 Diltiazem HCl (Cardizem Cd) 240 mg [facility] [place] [facility] Stop: 10/09/19 08:59 Last Admin: 09/09/19 08:33 Dose: 240 mg Documented by: Diphenhydramine HCl (Benadryl Capsule) 25 mg PO TID PRN PRN Reason: Itching Stop: 10/09/19 00:48 Ferrous Sulfate (Feosol) 325 mg PO [facility] Stop: 10/09/19 08:59 Last Admin: 09/09/19 08:34 Dose: 325 mg Documented by: Folic Acid (Folvite) 1 mg PO QAM [facility] Stop: 10/09/19 08:59 Last Admin: 09/09/19 08:33 Dose: 1 mg Documented by: Furosemide (Lasix) 40 mg PO QAM [facility] Stop: 10/09/19 08:59 Last Admin: 09/09/19 08:33 Dose: 40 mg Documented by: Magnesium Hydroxide (Milk Of Magnesia) 30 ml PO Q12H PRN PRN Reason: Constipation Stop: 10/09/19 00:24 Memantine (Namenda) 5 mg PO BID [facility] Stop: 10/09/19 08:59 Last Admin: 09/09/19 08:34 Dose: 5 mg Documented by: Methotrexate (Methotrexate) 15 mg PO Sa@0900 [facility] Stop: 10/09/19 08:59 Last Admin: 09/09/19 08:34 Dose: 15 mg Documented by: Metoprolol Succinate (Toprol Xl) 50 mg PO QA[facility] [place] Stop: 10/09/19 08:59 Last Admin: 09/09/19 08:34 Dose: 50 mg Documented by: Ondansetron HCl (Zofran) 4 mg IV Q6H PRN PRN Reason: Nausea Stop: 10/09/19 00:24 Polyethylene Glycol (Miralax Powder Packet) 17 gm PO DAILY PRN PRN Reason: Constipation Stop: 10/09/19 00:24 Potassium Chloride (Klor-Con M10) 10 meq PO BID [facility] Stop: 10/09/19 08:59 Last Admin: 09/09/19 08:33 Dose: 10 meq Documented by: Zolpidem Tartrate (Ambien) 5 mg PO HS PRN PRN Reason: Sleep Stop: 10/09/19 00:24 PG Care Time/CCT Total # of Minutes Spent Total Time Spent with Patient: Total time spent is greater than 50% in coordination of care (as documented) at patient's floor/unit and/or counseling patient: Coding Level of Care Code 38229 Subseq Hosp Care Lvl 2 Diagnoses Weakness R53.1 Fever R50.9 Fever type: unspecified Atrial fibrillation I48.91 Atrial fibrillation type: unspecified Dementia F03.90 (1) Fever Fever type: unspecified Qualified Code(s): R50.9 - Fever, unspecified (2) Atrial fibrillation Atrial fibrillation type: unspecified Qualified Code(s): I48.91 - Unspecified atrial fibrillation
[2019-09-09] MEDS: DIGOXIN 0.125 MG TAB PO SCH (15:44)
[2019-09-09] MEDS: MENTHOL-ZINC OXIDE 360 APPLN/120 GM TUBE EXT PRN (20:31)
[2019-09-09] MEDS: ATORVASTATIN 40 MG TAB PO SCH (20:32)
--- NOTE | 2019-09-09 22:53 | Billing Data ---
Date of Service September 09, 2019 Coding Level of Care Code 46245 Initial Inpt Care Lvl 2
[2019-09-10 07:03] LABS: Hematocrit (blood only) 33.3 % (42-52); Hemoglobin 10.9 g/dL (14.0-18.0); Mean Corpuscular Hemoglobin 28.8 pg (25-34); Mean Corpuscular Hgb Conc 32.7 g/dL (32-36); Mean Corpuscular Volume 88.1 fL (80-100); Mean Platelet Volume 8.7 fL (7.4-10.4); Platelet Count 286 K/uL (130-400); RDW Coefficient of Variation 15.1 % (11.5-14.5); RDW Standard Deviation 47.9 fL (36.4-46.3); Red Blood Count 3.78 M/uL (4.7-6.1); White Blood Count 7.36 K/uL (4.8-10.8)
[2019-09-10 07:46] LABS: BUN Creatinine Ratio 18.7 (10-20); Calcium 8.6 mg/dl (8.5-10.1); Creatinine Clr Calc Pharmacy 101.4 ml/min; Est GFR (African American) 116.4; Est GFR (Non-African American) 100.4; Potassium 3.5 mmol/L (3.5-5.1)
[2019-09-10] MEDS: MEMANTINE HCL 5 MG TAB PO SCH ×2 (08:05→19:51)
[2019-09-10] MEDS: APIXABAN 5 MG TABLET PO SCH ×2 (08:05→19:51)
[2019-09-10] MEDS: dilTIAZem HCL 240 MG CAPCR PO SCH (08:06)
[2019-09-10] MEDS: FOLIC ACID 1 MG TAB PO SCH (08:06)
[2019-09-10] MEDS: POTASSIUM CHLORIDE 10 MEQ TABCR PO SCH ×2 (08:06→19:51)
[2019-09-10] MEDS: METOPROLOL SUCC 50MG EXT REL TAB PO SCH (08:06)
[2019-09-10] MEDS: MENTHOL-ZINC OXIDE 360 APPLN/120 GM TUBE EXT PRN (08:06)
[2019-09-10] MEDS: FERROUS SULFATE 325 MG TAB PO SCH (08:07)
[2019-09-10] MEDS: FUROSEMIDE 40 MG TAB PO SCH (08:08)
[2019-09-10] MEDS: CLOBETASOL PROPIONATE 0.05% OINT 15 GM TUBE EXT SCH ×2 (08:08→19:50)
[2019-09-10] MEDS ORDERED: KETOROLAC TROMETHAMINE 15 MG/ML VIAL IV ONE (10:45)
--- NOTE | 2019-09-10 12:46 | XRay Report ---
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 Dystrophic calcification s are noted adjacent to the ischial tuberosities/hamstring attachment sites. There is mild lateral hi p soft tissue swelling. No acute fracture, dislocation, opaque foreign body or avascular necrosis. IMPRESSION: Soft tissue swelling without acute fracture or dislocation. ACT 112: Negative or not required by law. The above report was generated using voice recognition software. It may contain grammatical, syntax o r spelling errors. Electronically signed by: Gary Rod M.D. 09/10/2019 12:45 PM
--- NOTE | 2019-09-10 15:27 | Hospitalist Progress Note ---
Date of Service September 10, 2019 Assessment & Plan (1) Weakness: Mr. Fagan is a 74 yo male with underlying dementia who presented to [facility] after being discharged from [facility] for re- evaluation of weakness and difficultly walking. - no signs of infection at this time, no further antibiotics planned, blood cultures will be followed - weakness likely due to deconditioning and arthritic pain - at [facility], he was treated for afib RVR after having unwitnessed fall at his personal care facility CT head negative, CT cervical spine negative for fracture X-ray of both knees, left elbow and pelvis/hips negative for fracture here he has pain in left hip and left leg too tender to move, repeat x-ray left hip shows no fracture pain control with toradol, has a listed allergy to Codeine, try to avoid narcotics if possible PT/OT consulted, plan for SNF rehab prior to going to personal group home in [place] (2) Fever: - Tmax 37.9, today it is 37.7 - WBC normal, no evidence of infection on work up in the ED - no further antibiotics planned (3) Atrial fibrillation: - on chronic anticoagulation with Eliqus - continue home rate control regimen with Metoprolol 50mg qAM and diltiazem 240mg qAM - continue home digoxin 125 mcg rates are well controlled, low 100's (4) Dementia: - severity is unknown - continue home memantime Dispo: Med/Surg Diet: Heart Healthy DVT ppx: on Coumadin Code: DNR/DNI, per residential documentation plan for rehab, CM discussed with his Gwendolyn, referrals made to several facilities Admission and Anticipated Discharge Date Admission Date: September 08, 2019 Subjective reviewed records sent from [facility]: patient had unwitnessed fall at his personal care facility in [place] in the ED at [place] he had afib with RVR, treated with Diltiazem bolus and drip and transferred to [facility] converted to Diltiazem 240mg PO daily for rate control he had CT head, CT cervical spine, x-ray of the pelvis and x-rays of both knees and x-ray of elbow, no fractures seen therapy at [facility] recommended SNF rehab and physician wanted rehab, but his wanted him discharged to personal care once at personal [facility] he was too weak and he was sent here, unsure whey he was not sent to [place] since he was just at their facility today he continues to c/o pain in knees, hips, elbows, says he is too weak to move not much else can be obtained in terms of history due to dementia on exam he is tender in left hip, hurts with log rolling -- x-ray left hip/pelvis negative for fracture Review of Systems Review of Systems: Unobtainable due to cognitive status (dementia, just says he wants to walk but can't, hurts all over) Physical Exam Constitutional: WD/WN, vitals as above Eyes: PERRL, conjunctivae normal, anicteric sclerae ENMT: external ear and nose normal, oropharynx normal Neck: trachea midline, no thyromegaly Respiratory: normal respiratory effort, lungs clear to auscultation Cardiovascular: Rate/Rhythm: regular rate and + irregularly irregular Heart Sounds: normal S1 and normal S2; no murmur Vessels: no JVD Extremities: normal capillary refill; no edema Gastrointestinal (Abdomen): normal bowel sounds, soft, nontender, no hepatosplenomegaly Musculoskeletal: Head/Neck/Chest: normocephalic, head atraumatic and neck supple Extremities: extremities normal to inspection and + abnormal strength (left leg weak, 3/5 strength, can wiggle toes); no cyanosis, no clubbing and no petechiae Hip: + limited ROM of hip (both hips, due to pain) Knee: + limited ROM of knee (due to pain); no effusion and no skin erythema Skin: no rashes, warm and dry Neurologic: patellar DTR's 2+ bilat, sensation intact and PERRL, EOMI, accommodation nl, no face palsy, no dysarthria Psychiatric: Orientation: alert, oriented to person and cooperative; + not oriented to place and + not oriented to time Lymphatic: no cervical or axillary lymphadenopathy Results & Data Results & Data ([facility]) Vital Signs (Past 12 Hours) Vital Signs Temp Pulse Pulse Resp BP Pulse Ox 09/10/19 11:06 37.7 C H 92 H 20 122/68 92 09/10/19 07:52 36.7 C 103 H 18 143/90 H 97 09/10/19 07:35 96 H 09/10/19 03:52 36.9 C 99 H 18 128/81 93 Laboratory Results Laboratory Results - last 24 hr 09/10/19 09/10/19 06:53 06:53 WBC 7.36 RBC 3.78 L Hgb 10.9 L Hct 33.3 L MCV 88.1 MCH 28.8 MCHC 32.7 RDW Std Deviation 47.9 H RDW Coeff of Rashard 15.1 H Plt Count 286 MPV 8.7 Sodium 134 L Potassium 3.5 Chloride 100 Carbon Dioxide 28 Anion Gap 5.0 BUN 11 Creatinine 0.57 L Est Cr Clr Drug Dosing 101.4 Est GFR ( Amer) 116.4 Est GFR (Non-Af Amer) 100.4 BUN/Creatinine Ratio 18.7 Glucose 117 H Calcium 8.6 Medications Administered Current Inpatient Medications Al Hydrox/Mg Hydrox/Simethicone (Maalox) 15 ml PO Q4H PRN PRN Reason: Dyspepsia Stop: 10/09/19 00:24 Albuterol (Duoneb) 3 ml INH Q4H PRN PRN Reason: Shortness Of Breath Or Wheezing Stop: 10/09/19 00:24 Apixaban (Eliquis) [address] [facility] Stop: 10/09/19 08:59 Last Admin: 09/10/19 08:05 Dose: 5 mg Documented by: Atorvastatin Calcium (Lipitor) [address] [facility] Stop: 10/09/19 20:59 Last Admin: 09/09/19 20:32 Dose: 40 mg Documented by: Calamine/Phenol (Calmoseptine) 1 appln EXT BID PRN PRN Reason: Skin Irritation Stop: 10/09/19 00:24 Last Admin: 09/10/19 08:06 Dose: 1 appln Documented by: Clobetasol Propionate (Clobetasol Propionate Oint) [address] [facility] Stop: 10/09/19 08:59 Last Admin: 09/10/19 08:08 Dose: 1 appln Documented by: Digoxin (Lanoxin) 0.125 mg PO DAILY@1600 [facility] Stop: 10/09/19 15:59 Last Admin: 09/09/19 15:44 Dose: 0.125 mg Documented by: Diltiazem HCl (Cardizem Cd) [address] [facility] Stop: 10/09/19 08:59 Last Admin: 09/10/19 08:06 Dose: 240 mg Documented by: Diphenhydramine HCl (Benadryl Capsule) 25 mg PO TID PRN PRN Reason: Itching Stop: 10/09/19 00:48 Last Admin: 09/10/19 11:30 Dose: 25 mg Documented by: Ferrous Sulfate (Feosol) [address] [facility] Stop: 10/09/19 08:59 Last Admin: 09/10/19 08:07 Dose: 325 mg Documented by: Folic Acid (Folvite) [address] [facility] Stop: 10/09/19 08:59 Last Admin: 09/10/19 08:06 Dose: 1 mg Documented by: Furosemide (Lasix) [address] [facility] Stop: 10/09/19 08:59 Last Admin: 09/10/19 08:08 Dose: 40 mg Documented by: Magnesium Hydroxide (Milk Of Magnesia) 30 ml PO Q12H PRN PRN Reason: Constipation Stop: 10/09/19 00:24 Memantine (Namenda) [address] [facility] Stop: 10/09/19 08:59 Last Admin: 09/10/19 08:05 Dose: 5 mg Documented by: Methotrexate (Methotrexate) 15 mg PO Sa@0900 [facility] Stop: 10/09/19 08:59 Last Admin: 09/09/19 08:34 Dose: 15 mg Documented by: Metoprolol Succinate (Toprol Xl) [address] [facility] Stop: 10/09/19 08:59 Last Admin: 09/10/19 08:06 Dose: 50 mg Documented by: Ondansetron HCl (Zofran) 4 mg IV Q6H PRN PRN Reason: Nausea Stop: 10/09/19 00:24 Polyethylene Glycol (Miralax Powder Packet) 17 gm PO DAILY PRN PRN Reason: Constipation Stop: 10/09/19 00:24 Potassium Chloride (Klor-Con M10) [address] [facility] Stop: 10/09/19 08:59 Last Admin: 09/10/19 08:06 Dose: 10 meq Documented by: Zolpidem Tartrate (Ambien) 5 mg PO HS PRN PRN Reason: Sleep Stop: 10/09/19 00:24 PG Care Time/CCT Total # of Minutes Spent Total Time Spent with Patient: Total time spent is greater than 50% in coordination of care (as documented) at patient's floor/unit and/or counseling patient: Coding Level of Care Code 67517 Subseq Hosp Care Lvl 2 Diagnoses Weakness R53.1 Fever R50.9 Fever type: unspecified Atrial fibrillation I48.91 Atrial fibrillation type: unspecified Dementia F03.90 (1) Fever Fever type: unspecified Qualified Code(s): R50.9 - Fever, unspecified (2) Atrial fibrillation Atrial fibrillation type: unspecified Qualified Code(s): I48.91 - Unspecified atrial fibrillation
[2019-09-10] MEDS: DIGOXIN 0.125 MG TAB PO SCH (17:02)
[2019-09-10] MEDS: ATORVASTATIN 40 MG TAB PO SCH (19:51)
--- NOTE | 2019-09-11 07:06 | XRay Report ---
XR elbow RT 2V CLINICAL HISTORY: Right elbow pain and swelling COMPARISON: None DISCUSSION: There is a small joint effusion. No fractures are visualized. There is chondrocalcinosis. There is olecranon spur. There is mild olecranon soft tissue swelling. IMPRESSION: 1. Small effusion 2. No acute fractures 3. Soft tissue swelling ACT 112: Negative or not required by law. Electronically signed by: Amari Garcia M.D. 09/11/2019 7:04 AM
[2019-09-11 07:44] LABS: Hematocrit (blood only) 31.8 % (42-52); Mean Corpuscular Hemoglobin 27.6 pg (25-34); Mean Corpuscular Hgb Conc 31.4 g/dL (32-36); Mean Corpuscular Volume 87.8 fL (80-100); Mean Platelet Volume 9.5 fL (7.4-10.4); Platelet Count 335 K/uL (130-400); RDW Standard Deviation 48.1 fL (36.4-46.3); Red Blood Count 3.62 M/uL (4.7-6.1); White Blood Count 7.42 K/uL (4.8-10.8)
[2019-09-11 08:25] LABS: BUN Creatinine Ratio 24.9 (10-20); Calcium 8.5 mg/dl (8.5-10.1); Creatinine Clr Calc Pharmacy 95.5 ml/min; Est GFR (African American) 113.2; Est GFR (Non-African American) 97.7; Potassium 3.5 mmol/L (3.5-5.1)
[2019-09-11] MEDS: dilTIAZem HCL 240 MG CAPCR PO SCH (09:36)
[2019-09-11] MEDS: FERROUS SULFATE 325 MG TAB PO SCH (09:36)
[2019-09-11] MEDS: FOLIC ACID 1 MG TAB PO SCH (09:36)
[2019-09-11] MEDS: POTASSIUM CHLORIDE 10 MEQ TABCR PO SCH ×2 (09:37→20:28)
[2019-09-11] MEDS: FUROSEMIDE 40 MG TAB PO SCH (09:37)
[2019-09-11] MEDS: METOPROLOL SUCC 50MG EXT REL TAB PO SCH (09:37)
[2019-09-11] MEDS: MEMANTINE HCL 5 MG TAB PO SCH ×2 (09:38→20:28)
[2019-09-11] MEDS: APIXABAN 5 MG TABLET PO SCH ×2 (09:38→20:29)
[2019-09-11] MEDS: CLOBETASOL PROPIONATE 0.05% OINT 15 GM TUBE EXT SCH ×2 (09:39→20:34)
[2019-09-11] MEDS: ACETAMINOPHEN 500 MG TAB PO PRN (13:03)
--- NOTE | 2019-09-11 13:31 | Hospitalist Progress Note ---
Date of Service September 11, 2019 Assessment & Plan (1) Weakness: Mr. Fagan is a 74 yo male with underlying dementia, bullous pemphigoid, chronic atrial fibrillation, hyperlipidemia who presented to [facility] after being discharged from [facility] for re-evaluation of weakness and difficulty walking with a recent fall and admission for rapid atrial fibrillation. He was also noted to have a low-grade fever upon admission. - no source of infection found on admission, however his right elbow is red and swollen and with painful range of motion, ESR greater than 90, CRP elevated 18. See below under elbow pain -Blood cultures will be followed here and from [facility] - weakness likely due to deconditioning and arthritic pain - at [facility], he was treated for afib RVR after having unwitnessed fall at his personal care facility CT head negative, CT cervical spine negative for fracture X-ray of both knees, left elbow and pelvis/hips negative for fracture here he has pain in left hip and left leg too tender to move, repeat x-ray left hip shows no fracture pain control with toradol, and will add aspirin -Has a listed allergy to Codeine, try to avoid narcotics if possible PT/OT consulted, plan for SNF rehab prior to going to personal residential in [place] (2) Elbow pain, right: With exquisite pain and worsening swelling and erythema of the right elbow with dependent 3+ edema on the right hand With painful range of motion X-rays negative for fracture but showed joint effusion and soft tissue edema ESR greater than 90, CRP elevated at 18 Concern for septic arthritis versus hematoma given that he is on Eliquis versus occult fracture Uric acid is normal at 4, no history of gout -Consulted orthopedic surgery-awaiting further recommendations -Order MRI of the right elbow with and without contrast to assess for either occult fracture or signs of infection -Add acetaminophen for pain control -Start icing to the elbow 3 times daily -Follow ESR and CRP (3) Fever: - Tmax 37.9 on day of admission and now improved Did receive 1 dose of IV cefepime upon admission but none since then - WBC normal, no evidence of infection on work up in the ED, however with elevat ed sed rate and CRP and possible infection of the right elbow as above - no further antibiotics planned for now -Follow blood cultures -COVID 19 test is negative -Check Lyme titer given multiple painful joints (4) Atrial fibrillation: Chronic atrial fibrillation With uncontrolled rates in the low 100s during the day - on chronic anticoagulation with Eliqus-continue such -Will increase metoprolol to 75 mg qAM for improved rate control -Continue diltiazem 240mg qAM and home digoxin 125 mcg once daily (5) Bullous pemphigoid: Much improved compared to description and previous scanned in primary care notes Follows with dermatology as an outpatient -Continue home dose of methotrexate 15 mg p.o. once weekly on Saturdays and Benadryl as needed for itching (6) Dementia: - severity is unknown - continue home memantime (7) DVT prophylaxis: Eliquis Dispo: Continued stay on medical floor with telemetry Code: DNR/DNI, per [facility] documentation plan for rehab, CM discussed with his Gwendolyn, referrals made to several facilities and will be accepted for tomorrow at [facility] Admission and Anticipated Discharge Date Admission Date: September 08, 2019 Anticipated date of discharge: 09/12/19 Subjective Patient reports pain in his right elbow that is really bad with any movement of the right upper extremity. He also has some pain in his ankles. Denies any headache or chest pain, no shortness of breath. No nausea or vomiting. He is eating well. The nurse has applied an ice pack to the elbow and noted that his right hand was very swollen. Telemetry with atrial fibrillation with rates in the 80s overnight to 100s during the day. I discussed the case with the orthopedic surgery physicians assistant analyst today. I also discussed his case with his on the phone as the patient has dementia and is extremely hard of hearing. She reports the patient has never had an episode of gout and she has been to him for most 50 years. He is on methotrexate for recent diagnosis of bullous pemphigoid. Review of Systems Review of Systems: All systems reviewed & are unremarkable except as noted in HPI & below Physical Exam Constitutional: WD/WN, vitals as above Eyes: + anicteric sclerae ENMT: Ears: + hearing impairment Neck: trachea midline, no thyromegaly Respiratory: normal respiratory effort, lungs clear to auscultation Cardiovascular: Rate/Rhythm: regular rate and + irregularly irregular Heart Sounds: no murmur Extremities: no edema Chest (Breasts): Chest: + abnormal inspection of chest (pectus carinatum) Gastrointestinal (Abdomen): normal bowel sounds, soft, nontender, no hepatosplenomegaly Musculoskeletal: Extremities: no cyanosis and no clubbing Right elbow with exquisite tenderness to palpation over the lateral epicondyle with mild erythema and with joint effusion. With significant pain with active and passive range of motion of the elbow but able to achieve 0-120 degrees flexion, also pain with supination against resistance, no swelling of the olecranon bursa. No tenderness to palpation at all over the right shoulder or humerus or right forearm Right hand with significant pitting edema 3+ and diminished generalized motion of all fingers. Otherwise, joints and ankles are stiff and painful left greater than right ankle but no erythema or effusion Skin: no rashes, warm and dry Neurologic: moves all extremities and awake; no focal motor deficits Psychiatric: Orientation: alert, oriented to person and cooperative Results & Data Results & Data ([facility]) Vital Signs (Past 12 Hours) Vital Signs Temp Pulse Pulse Resp BP Pulse Ox 09/11/19 11:24 36.9 C 102 H 18 124/80 98 09/11/19 07:52 88 09/11/19 07:36 36.6 C 94 H 18 127/75 96 09/11/19 03:30 37.0 C 96 H 19 103/66 94 09/11/19 02:31 97 H Laboratory Results 09/11/19 09/11/19 09/11/19 Range/Units 06:56 06:56 06:56 WBC (4.8-10.8) K/uL RBC (4.7-6.1) M/uL Hgb (14.0-18.0) g/dL Hct (42-52) % MCV (80-100) fL MCH (25-34) pg MCHC (32-36) g/dL RDW Std Deviation (36.4-46.3) fL RDW Coeff of Rashard (11.5-14.5) % Plt Count (130-400) K/uL MPV (7.4-10.4) fL ESR > 90 H (0-14) mm/hr Sodium 134 L (136-145) mmol/L Potassium 3.5 (3.5-5.1) mmol/L Chloride 97 L (98-107) mmol/L Carbon Dioxide 28 (21-32) mmol/L Anion Gap 8.0 (3-11) BUN 15 (7-18) mg/dl Creatinine 0.61 (0.6-1.4) mg/dl Est Cr Clr Drug Dosing 95.5 ml/min Est GFR ( Amer) 113.2 Est GFR (Non-Af Amer) 97.7 BUN/Creatinine Ratio 24.9 H (10-20) Glucose 97 (70-99) mg/dl Uric Acid 4.2 (2.6-7.2) mg/dl Calcium 8.5 (8.5-10.1) mg/dl C-Reactive Protein 18.20 H (0-0.29) mg/dl // Range/Units 06:56 WBC 7.42 (4.8-10.8) K/uL RBC 3.62 L (4.7-6.1) M/uL Hgb 10.0 L (14.0-18.0) g/dL Hct 31.8 L (42-52) % MCV 87.8 (80-100) fL MCH 27.6 (25-34) pg MCHC 31.4 L (32-36) g/dL RDW Std Deviation 48.1 H (36.4-46.3) fL RDW Coeff of Rashard 15.0 H (11.5-14.5) % Plt Count 335 (130-400) K/uL MPV 9.5 (7.4-10.4) fL ESR (0-14) mm/hr Sodium (136-145) mmol/L Potassium (3.5-5.1) mmol/L Chloride (98-107) mmol/L Carbon Dioxide (21-32) mmol/L Anion Gap (3-11) BUN (7-18) mg/dl Creatinine (0.6-1.4) mg/dl Est Cr Clr Drug Dosing ml/min Est GFR ( Amer) Est GFR (Non-Af Amer) BUN/Creatinine Ratio (10-20) Glucose (70-99) mg/dl Uric Acid (2.6-7.2) mg/dl Calcium (8.5-10.1) mg/dl C-Reactive Protein (0-0.29) mg/dl Diagnostic Findings Right elbow x-ray image personally reviewed by me and agree with the following report: XR elbow RT 2V CLINICAL HISTORY: Right elbow pain and swelling COMPARISON: None DISCUSSION: There is a small joint effusion. No fractures are visualized. There is chondrocalcinosis. There is olecranon spur. There is mild olecranon soft tissue swelling. IMPRESSION: 1. Small effusion 2. No acute fractures 3. Soft tissue swelling PG Care Time/CCT Total # of Minutes Spent Total Time Spent with Patient: Total time spent is greater than 50% in coordination of care (as documented) at patient's floor/unit and/or counseling patient: Coding Level of Care Code 84610 Subseq Hosp Care Lvl 3 Diagnoses Weakness R53.1 Elbow pain, right M25.521 Fever R50.9 Fever type: unspecified Atrial fibrillation I48.91 Atrial fibrillation type: unspecified Bullous pemphigoid L12.0 Dementia F03.90 DVT prophylaxis Z29.9 (1) Fever Fever type: unspecified Qualified Code(s): R50.9 - Fever, unspecified (2) Atrial fibrillation Atrial fibrillation type: unspecified Qualified Code(s): I48.91 - Unspecified atrial fibrillation
[2019-09-11] MEDS ORDERED: METOPROLOL SUCC 25MG EXT REL TAB PO STA (13:38)
[2019-09-11 13:42] LABS: C Reactive Protein 18.2 mg/dl (0-0.29); Uric Acid 4.2 mg/dl (2.6-7.2)
--- NOTE | 2019-09-11 15:17 | Orthopedic Consultation ---
Date of Consultation September 11, 2019 Assessment & Plan (1) Elbow pain, right: 74-year-old white male with right elbow pain status post fall around a week ago. Pain mostly localized over the lateral aspect of the elbow, accentuated with palpation and supination. Slight erythema and noted ecchymosis over the lateral aspect of the elbow. No overt erythema surrounding the elbow at this time. White count has been normal during his stay although his sed rate and CRP are elevated. Urinalysis is negative for bacteria and there currently calling [facility] for blood culture results that were drawn there. Uric acid is wnl. Temps were only increased twice during his stay here highest being 37.8. Does not examine as infection at this time. Possible contusion versus nondisplaced fracture unseen on plain films of the radial head. An MRI has been ordered by Dr. Henao. I discussed the findings and films with Dr. Mandel and await MRI results. History of Present Illness Reason for Consultation: Right elbow pain Attending Physician: Destiny Henao MD History of Present Illness 74-year-old white male who was admitted on 09/09/2019 secondary to weakness after a fall. Patient was residing at a personal intermediate and fell 3 to 4 days prior to admission here at [facility]. He initially went to [facility] and then was transferred to [facility]. At that time he was complaining of some leg pain after the fall. He was treated and then discharged to his personal care facility. He was then sent here due to weakness and question of sepsis shortly after his return to his personal care facility. After his admission here, he been complaining of right elbow pain. This continued to worsen and Dr. Henao has asked us to see the patient for his right elbow pain. Currently the patient was sleeping upon arrival but is easily awoken. With his history of dementia, history is very difficult and patient does not remember falling. He is pleasant. History is taken from the chart at this point in time. Currently he states that his elbow is feeling better at this time. Allergies Allergy/AdvReac Type Severity Reaction Status Date / Time codeine Allergy Unknown Unverified 09/08/19 18:53 Home Medications Home Medications Medication Instructions Recorded Confirmed Type acetaminophen [Tylenol] 650 mg PO Q6H PRN 09/08/19 09/08/19 History apixaban [Eliquis] 5 mg PO BID 09/08/19 09/08/19 History atorvastatin [Lipitor] 40 mg PO HS 09/08/19 09/08/19 History bisacodyl [Dulcolax (bisacodyl)] 10 mg MS DAILY PRN 09/08/19 09/08/19 History clobetasol [Temovate] 1 applic TOPICAL BID 09/08/19 09/08/19 History digoxin [Digox] 125 mcg PO QAM 09/08/19 09/08/19 History diltiazem HCl [Cardizem CD] 240 mg PO QAM 09/08/19 09/08/19 History diphenhydramine HCl [Benadryl 25 mg PO TID PRN 09/08/19 09/08/19 History Allergy] ferrous sulfate 325 mg PO QAM 09/08/19 09/08/19 History folic acid 1 mg PO QAM 09/08/19 09/08/19 History furosemide [Lasix] 40 mg PO QAM 09/08/19 09/08/19 History ipratropium-albuterol 3 ml INHALATION Q4H PRN 09/08/19 09/08/19 History memantine [Namenda] 5 mg PO BID 09/08/19 09/08/19 History menthol-zinc oxide [Calmoseptine] 1 applic TOPICAL BID PRN 09/08/19 09/08/19 History methotrexate sodium 15 mg PO SA 09/08/19 09/08/19 History metoprolol succinate [Toprol XL] 50 mg PO QAM 09/08/19 09/08/19 History multivitamin,uh-vpuw-zcpzonqc 1 tab PO QAM 09/08/19 09/08/19 History [Therems-M] niacinamide [Niacin (niacinamide)] 500 mg PO QAM 09/08/19 09/08/19 History potassium chloride [K-Tab] 10 meq PO BID 09/08/19 09/08/19 History Patient History Medical History Atrial fibrillation (Acute) Bullous pemphigoid Chronic atrial fibrillation Dementia Social History Preferred Language: Tunisian Communication Ability: Impaired Beliefs That Will Affect Care: None marital status: Current Living Situation: Long-Term Other Information That Helps Us Care for You: No Feels Safe at Home: Yes Safety Concerns: Feels Safe At This Time Smoking Status: Never smoker Hx Alcohol Use: No Hx Substance Use: No Review of Systems Review of Systems: Unobtainable due to cognitive status Physical Exam Physical Exam: Patient is a 74-year-old WD,WN, white male who was sleeping upon my arrival to his room. He is easily awoken. He is pleasant and conversant but confused as to place and time. He does not remember falling prior to his admission. He is in no acute distress. Focusing the exam on the right upper extremity, he has a ice pack on the right elbow which is removed. He has some noted erythema/ecchymosis over the lateral aspect of the elbow. When asked, he allows me to inspect the elbow. Patient is able to gently raise his elbow off of the bed and does not appear to be in pain when he does. While supporting the elbow, palpation of the lateral elbow over the radial head is very tender. Swelling is noted in this area. Palpation of the medial aspect of the elbow is nontender on palpation. He has no pain over the olecranon process. No overt erythema surrounding the elbow at this time and the only swelling appears to be over the lateral aspect of the elbow. I can take him through gentle passive range of motion of the elbow without pain. He is able to actively finish the exam with elbow flexion and extension without discomfort. Passive supination causes him moderate tenderness laterally just prior to the endpoint. Pronation has only a very slight amount of pain that is caused in the same area at the endpoint. He has some edema that is tracking distally down into his hand and fingers. Cap refill is less than 2 seconds and I can appreciate radial pulse. Range of motion of the fingers actively is within normal limits. He has good thumb strength with flex/extension. Wrist ROM wnl with only slight weakness compared to left. Thumb to index finger strength similar to left. Facilities Operator strength compared to the left is slightly weaker. Patient has no pain on palpation of his humerus above the elbow to the shoulder. Full range of motion is nontender and appears to be within normal limits. When I asked the patient several different ways about sensation of the hand and fingers, he is unable to answer me. The rest of the exam is otherwise unremarkable. Results & Data ([facility]) Vital Signs (Past 12 Hours) Vital Signs Temp Pulse Pulse Resp BP Pulse Ox 09/11/19 14:36 66 118/64 09/11/19 11:24 36.9 C 102 H 18 124/80 98 09/11/19 07:52 88 09/11/19 07:36 36.6 C 94 H 18 127/75 96 09/11/19 03:30 37.0 C 96 H 19 103/66 94 Laboratory Results Laboratory Results WBC 7.42 K/uL (4.8-10.8) 09/11/19 06:56 RBC 3.62 M/uL (4.7-6.1) L 09/11/19 06:56 Hgb 10.0 g/dL (14.0-18.0) L 09/11/19 06:56 Hct 31.8 % (42-52) L 09/11/19 06:56 MCV 87.8 fL (80-100) 09/11/19 06:56 MCH 27.6 pg (25-34) 09/11/19 06:56 MCHC 31.4 g/dL (32-36) L 09/11/19 06:56 RDW Std Deviation 48.1 fL (36.4-46.3) H 09/11/19 06:56 RDW Coeff of Rashard 15.0 % (11.5-14.5) H 09/11/19 06:56 Plt Count 335 K/uL (130-400) 09/11/19 06:56 MPV 9.5 fL (7.4-10.4) 09/11/19 06:56 Immature Gran % (Auto) 0.3 % 09/09/19 08:32 Neut % (Auto) 68.9 % 09/09/19 08:32 Lymph % (Auto) 12.7 % 09/09/19 08:32 [place] % (Auto) 13.8 % 09/09/19 08:32 Eos % (Auto) 4.0 % 09/09/19 08:32 Baso % (Auto) 0.3 % 09/09/19 08:32 Immature Gran # (Auto) 0.02 K/uL (0.00-0.02) 09/09/19 08:32 Neut # (Auto) 4.36 K/uL (1.4-6.5) 09/09/19 08:32 Lymph # (Auto) 0.80 K/uL (1.2-3.4) L 09/09/19 08:32 [place] # (Auto) 0.87 K/uL (0.11-0.59) H 09/09/19 08:32 Eos # (Auto) 0.25 K/uL (0-0.5) 09/09/19 08:32 Baso # (Auto) 0.02 K/uL (0-0.2) 09/09/19 08:32 ESR > 90 mm/hr (0-14) H 09/11/19 06:56 PT 11.9 Seconds (9.0-12.0) 09/08/19 18:45 INR 1.1 (0.9-1.1) 09/08/19 18:45 APTT 35.5 Seconds (21.0-31.0) H 09/08/19 18:45 PTT Ratio 1.3 09/08/19 18:45 Sodium 134 mmol/L (136-145) L 09/11/19 06:56 Potassium 3.5 mmol/L (3.5-5.1) 09/11/19 06:56 Chloride 97 mmol/L (98-107) L 09/11/19 06:56 Carbon Dioxide 28 mmol/L (21-32) 09/11/19 06:56 Anion Gap 8.0 (3-11) 09/11/19 06:56 BUN 15 mg/dl (7-18) 09/11/19 06:56 Creatinine 0.61 mg/dl (0.6-1.4) 09/11/19 06:56 Est Cr Clr Drug Dosing 95.5 ml/min 09/11/19 06:56 Est GFR ( Amer) 113.2 09/11/19 06:56 Est GFR (Non-Af Amer) 97.7 09/11/19 06:56 BUN/Creatinine Ratio 24.9 (10-20) H 09/11/19 06:56 Glucose 97 mg/dl (70-99) 09/11/19 06:56 Lactate 0.8 mmol/L (0.4-2.0) 09/08/19 18:19 Uric Acid 4.2 mg/dl (2.6-7.2) 09/11/19 06:56 Calcium 8.5 mg/dl (8.5-10.1) 09/11/19 06:56 Magnesium 2.0 mg/dl (1.8-2.4) 09/08/19 18:45 Total Bilirubin 0.6 mg/dl (0.2-1) 09/08/19 18:45 AST 17 U/L (15-37) 09/08/19 18:45 ALT 15 U/L (12-78) 09/08/19 18:45 Alkaline Phosphatase 67 U/L (45-117) 09/08/19 18:45 Troponin I Cancelled 09/08/19 17:10 C-Reactive Protein 18.20 mg/dl (0-0.29) H 09/11/19 06:56 Total Protein 6.0 gm/dl (6.4-8.2) L 09/08/19 18:45 Albumin 2.4 gm/dl (3.4-5.0) L 09/08/19 18:45 Globulin 3.6 gm/dl (2.5-4.0) 09/08/19 18:45 Albumin/Globulin Ratio 0.7 (0.9-2) L 09/08/19 18:45 Vitamin B12 1109 pg/ml (211-911) H 09/09/19 08:32 Folate 22.45 ng/ml (>5.38) 09/09/19 00:36 Procalcitonin 0.13 ng/ml (0-0.5) 09/09/19 00:36 Urine Color Dark Yellow 09/08/19 17:45 Urine Appearance Clear (Clear) 09/08/19 17:45 Urine pH 5.0 (4.5-7.5) 09/08/19 17:45 Ur Specific [place] 1.022 (1.000-1.030) 09/08/19 17:45 Urine Protein Trace (Negative) H 09/08/19 17:45 Urine Glucose (UA) Negative (Negative) 09/08/19 17:45 Urine Ketones 1+ (Negative) H 09/08/19 17:45 Urine Blood Negative (Negative) 09/08/19 17:45 Urine Nitrite Negative (Negative) 09/08/19 17:45 Urine Bilirubin Negative (Negative) 09/08/19 17:45 Urine Urobilinogen Negative (Negative) 09/08/19 17:45 Ur Leukocyte Esterase Negative (Negative) 09/08/19 17:45 Urine WBC (Auto) 1-5 /hpf (0-5) 09/08/19 17:45 Urine RBC (Auto) 0-4 /hpf (0-4) 09/08/19 17:45 U Hyaline Cast (Auto) 0 /lpf (0-5) 09/08/19 17:45 U Epithel Cells (Auto) 0-5 /lpf (0-5) 09/08/19 17:45 Urine Bacteria (Auto) Negative (Negative) 09/08/19 17:45 Nasal Screen MRSA (PCR) Negative (Negative) 09/09/19 Unknown COVID-19 PCR NEGATIVE (Negative) 09/08/19 20:00 Diagnostic Findings Patient: CHARLES JENNINGS Date: 09/08/19 MR#: [id number]: [facility] Acct ID:[id number]: Date: [address] [place] [address] Zip: [place] [address] Age: 74Location: 2N Sex: M Room/Bed: [facility] Att Phy: Grady Martínez D.O.Diagnosis: WEAKNESS Charleen Phy: Luciano Huerta M.D.Service Date: 09/11/19 Fam Phy:Interpreting Phy: Amari Garcia MD Admit Phy: Yolanda Oleary MD Ordering Phy: Shira Au MD cc: ~ XR elbow RT 2V CLINICAL HISTORY: Right elbow pain and swelling COMPARISON: None DISCUSSION: There is a small joint effusion. No fractures are visualized. There is chondrocalcinosis. There is olecranon spur. There is mild olecranon soft tissue swelling. IMPRESSION: 1. Small effusion 2. No acute fractures 3. Soft tissue swelling
[2019-09-11] MEDS: DIGOXIN 0.125 MG TAB PO SCH (16:22)
--- NOTE | 2019-09-11 18:42 | XRay Report ---
BONY ORBITS 3 VIEWS CLINICAL HISTORY: MRI clearance. FINDINGS: 3 views of the bony orbits are obtained. No prior studies are available for comparison at t he time of dictation. There is no radiodense/metallic foreign body seen in the region of the bony orb its. The bony orbits are intact as imaged. The visualized paranasal sinuses and the mastoid air cells appear clear. The imaged calvarium appears intact. IMPRESSION: There is no radiodense/metallic foreign body seen in the region of the bony orbits. ACT 112: Negative or not required by law. Electronically signed by: Abraham Oliver M.D. 09/11/2019 6:41 PM
--- NOTE | 2019-09-11 19:17 | XRay Report ---
SKULL 4 VIEWS CLINICAL HISTORY: MRI screening. FINDINGS: 4 calvarial radiographs are obtained. No prior studies are available for comparison at the time of dictation. The skeletal structures are well mineralized. No fracture is seen. No radiodense f oreign body is identified. The paranasal sinuses are clear as imaged. The mastoid air cells appear we ll-pneumatized. IMPRESSION: No radiodense/metallic foreign body is identified. Electronically signed by: Abraham Oliver M.D. 09/11/2019 7:15 PM
[2019-09-11] MEDS ORDERED: GADOBUTROL 65ML VIAL IV PRN (20:12)
[2019-09-11] MEDS: ATORVASTATIN 40 MG TAB PO SCH (20:28)
--- NOTE | 2019-09-11 21:04 | Magnetic Resonance Report ---
MRI OF THE RIGHT ELBOW COMBO CLINICAL HISTORY: Fall. Right elbow pain. Erythema. Fever. COMPARISON STUDY: Radiographs of the right elbow dated 09/11/2019. TECHNIQUE: MRI of the right elbow is performed utilizing various T1 and T2-weighted sequences in the axial, sagittal, and coronal planes. Contrast-enhanced sequences are acquired following the IV admini stration of 6 cc of Gadavist. The examination is significantly compromised by motion artifact. FINDINGS: No marrow edema is identified to suggest fracture. There is no dislocation. The articular c artilage appears preserved. There is soft tissue edema identified around the elbow, greatest dorsally . No definite abnormal postcontrast enhancement is identified; however, this is not well evaluated du e to failure of fat suppression. A fluid collection is partially visualized posterior to the olecrano n process on axial image #10. This measures at least 2 cm. A large joint effusion is identified. Mild synovial thickening and enhancement is nonspecific. There is tendinopathy of the long head of the bi ceps tendon which is intact. The triceps tendon at its insertion is maintained. There is an age indet erminant rupture of the radial collateral ligament. Visualized portions of the ulnar collateral ligam ent appear intact. There is tendinopathy of the common flexor and common extensor tendons with partia l-thickness tearing. No full-thickness tear is identified. Moderate intramuscular edema is present ar ound the elbow. IMPRESSION: 1. Motion compromised examination. 2. Soft tissue edema is present around the elbow, greatest dorsally where there is a partially visual ized organized fluid collection. The appearance is typical for olecranon bursitis. Clinical correlati on will be essential. The sterility of this collection cannot be assessed by MRI. 3. No osseous abnormality is identified. 4. There is a large joint effusion with evidence of a nonspecific synovitis. 5. There is tendinopathy of the common flexor and common extensor tendons with partial-thickness tear ing at the humeral attachments. No full-thickness tear is seen. 6. Suspect age indeterminant rupture of the radial collateral ligament. 7. Intramuscular edema is noted around the elbow and indicates a nonspecific myositis. Dictated: 09/11/2019 8:33 PM Transcribed: 09/11/2019 8:59 PM Elicia [id number] NANDO_Maurone Electronically signed by: Abraham Oliver M.D. 09/11/2019 9:03 PM
[2019-09-12 06:14] LABS: Basophils # (auto) 0.01 K/uL (0-0.2); Basophils % (auto) 0.2 %; Hematocrit (blood only) 30.3 % (42-52); Hemoglobin 10.2 g/dL (14.0-18.0); Immature Granulocytes # (auto) 0.03 K/uL (0.00-0.02); Immature Granulocytes % (auto) 0.5 %; Lymphocytes # (auto) 0.94 K/uL (1.2-3.4); Lymphocytes % (auto) 14.2 %; Mean Corpuscular Hemoglobin 29.6 pg (25-34); Mean Corpuscular Hgb Conc 33.7 g/dL (32-36); Mean Corpuscular Volume 87.8 fL (80-100); Mean Platelet Volume 9.2 fL (7.4-10.4); Monocytes % (auto) 12.1 %; Neutrophils # (auto) 4.63 K/uL (1.4-6.5); Platelet Count 334 K/uL (130-400); RDW Coefficient of Variation 14.9 % (11.5-14.5); RDW Standard Deviation 47.6 fL (36.4-46.3); Red Blood Count 3.45 M/uL (4.7-6.1); White Blood Count 6.61 K/uL (4.8-10.8)
[2019-09-12 06:37] LABS: BUN Creatinine Ratio 32.8 (10-20); Calcium 8.6 mg/dl (8.5-10.1); Creatinine Clr Calc Pharmacy 97.3 ml/min; Est GFR (African American) 114.8; Magnesium 1.9 mg/dl (1.8-2.4); Potassium 3.6 mmol/L (3.5-5.1)
[2019-09-12 06:38] LABS: C Reactive Protein 18.2 mg/dl (0-0.29)
[2019-09-12 07:04] LABS: Lyme Ab IgM w/WB Rflx Negative (Negative)
[2019-09-12 07:05] LABS: Lyme Ab IgG w/WB Rflx Negative (Negative)
[2019-09-12] MEDS: POTASSIUM CHLORIDE 10 MEQ TABCR PO SCH ×2 (07:46→20:44)
[2019-09-12] MEDS: MEMANTINE HCL 5 MG TAB PO SCH ×2 (07:46→20:44)
[2019-09-12] MEDS: FERROUS SULFATE 325 MG TAB PO SCH (07:47)
[2019-09-12] MEDS: dilTIAZem HCL 240 MG CAPCR PO SCH (07:47)
[2019-09-12] MEDS: FUROSEMIDE 40 MG TAB PO SCH (07:47)
[2019-09-12] MEDS: FOLIC ACID 1 MG TAB PO SCH (07:47)
[2019-09-12] MEDS: METOPROLOL SUCC 25MG EXT REL TAB PO SCH (07:48)
[2019-09-12] MEDS: CLOBETASOL PROPIONATE 0.05% OINT 15 GM TUBE EXT SCH ×2 (07:48→20:44)
--- NOTE | 2019-09-12 07:49 | Orthopedic Progress Note ---
Date of Service September 12, 2019 Assessment & Plan (1) Elbow pain, right: Patient examined by Dr. Robb this morning. He feels that this is a large hemarthrosis in the elbow joint secondary to trauma. MRI reviewed as well. (above findings) No symptoms that would be consistent with a septic olecranon bursitis. We will continue to watch for now. Sling for comfort. Continue ice to the right elbow. If symptoms worsen, consider right elbow joint aspiration. Admission and Anticipated Discharge Date Admission Date: September 08, 2019 Anticipated date of discharge: 09/12/19 Subjective Patient seen this morning to recheck the right elbow. Dr. Robb is present and examining the patient as well. Patient is awake and alert and pleasantly confused. He states that he feels that his elbow is getting better. No new complaints. Physical Exam Physical Exam: Patient has a little less erythema and ecchymosis noted over the lateral aspect of the elbow. He appears to have a little less pain with supination. Continues to have minimal to no pain with ROM of the elbow itself. No other changes noted on exam. Results & Data ([facility]) Vital Signs (Past 12 Hours) Vital Signs Temp Pulse Resp BP Pulse Ox 09/12/19 07:42 36.7 C 91 H 20 123/76 94 09/12/19 04:32 37.3 C 92 H 16 120/71 97 09/12/19 00:08 37.2 C 60 20 110/70 93 Laboratory Results Laboratory Results WBC 6.61 K/uL (4.8-10.8) 09/12/19 05:49 RBC 3.45 M/uL (4.7-6.1) L 09/12/19 05:49 Hgb 10.2 g/dL (14.0-18.0) L 09/12/19 05:49 Hct 30.3 % (42-52) L 09/12/19 05:49 MCV 87.8 fL (80-100) 09/12/19 05:49 MCH 29.6 pg (25-34) 09/12/19 05:49 MCHC 33.7 g/dL (32-36) 09/12/19 05:49 RDW Std Deviation 47.6 fL (36.4-46.3) H 09/12/19 05:49 RDW Coeff of Rashard 14.9 % (11.5-14.5) H 09/12/19 05:49 Plt Count 334 K/uL (130-400) 09/12/19 05:49 MPV 9.2 fL (7.4-10.4) 09/12/19 05:49 Immature Gran % (Auto) 0.5 % 09/12/19 05:49 Neut % (Auto) 70.0 % 09/12/19 05:49 Lymph % (Auto) 14.2 % 09/12/19 05:49 [place] % (Auto) 12.1 % 09/12/19 05:49 Eos % (Auto) 3.0 % 09/12/19 05:49 Baso % (Auto) 0.2 % 09/12/19 05:49 Immature Gran # (Auto) 0.03 K/uL (0.00-0.02) H 09/12/19 05:49 Neut # (Auto) 4.63 K/uL (1.4-6.5) 09/12/19 05:49 Lymph # (Auto) 0.94 K/uL (1.2-3.4) L 09/12/19 05:49 [place] # (Auto) 0.80 K/uL (0.11-0.59) H 09/12/19 05:49 Eos # (Auto) 0.20 K/uL (0-0.5) 09/12/19 05:49 Baso # (Auto) 0.01 K/uL (0-0.2) 09/12/19 05:49 ESR > 90 mm/hr (0-14) H 09/12/19 05:49 PT 11.9 Seconds (9.0-12.0) 09/08/19 18:45 INR 1.1 (0.9-1.1) 09/08/19 18:45 APTT 35.5 Seconds (21.0-31.0) H 09/08/19 18:45 PTT Ratio 1.3 09/08/19 18:45 Sodium 135 mmol/L (136-145) L 09/12/19 05:49 Potassium 3.6 mmol/L (3.5-5.1) 09/12/19 05:49 Chloride 100 mmol/L (98-107) 09/12/19 05:49 Carbon Dioxide 29 mmol/L (21-32) 09/12/19 05:49 Anion Gap 6.0 (3-11) 09/12/19 05:49 BUN 19 mg/dl (7-18) H 09/12/19 05:49 Creatinine 0.59 mg/dl (0.6-1.4) L 09/12/19 05:49 Est Cr Clr Drug Dosing 97.3 ml/min 09/12/19 05:49 Est GFR ( Amer) 114.8 09/12/19 05:49 Est GFR (Non-Af Amer) 99.0 09/12/19 05:49 BUN/Creatinine Ratio 32.8 (10-20) H 09/12/19 05:49 Glucose 95 mg/dl (70-99) 09/12/19 05:49 Lactate 0.8 mmol/L (0.4-2.0) 09/08/19 18:19 Uric Acid 4.2 mg/dl (2.6-7.2) 09/11/19 06:56 Calcium 8.6 mg/dl (8.5-10.1) 09/12/19 05:49 Magnesium 1.9 mg/dl (1.8-2.4) 09/12/19 05:49 Total Bilirubin 0.6 mg/dl (0.2-1) 09/08/19 18:45 AST 17 U/L (15-37) 09/08/19 18:45 ALT 15 U/L (12-78) 09/08/19 18:45 Alkaline Phosphatase 67 U/L (45-117) 09/08/19 18:45 Troponin I Cancelled 09/08/19 17:10 C-Reactive Protein 18.20 mg/dl (0-0.29) H 09/12/19 05:49 Total Protein 6.0 gm/dl (6.4-8.2) L 09/08/19 18:45 Albumin 2.4 gm/dl (3.4-5.0) L 09/08/19 18:45 Globulin 3.6 gm/dl (2.5-4.0) 09/08/19 18:45 Albumin/Globulin Ratio 0.7 (0.9-2) L 09/08/19 18:45 Vitamin B12 1109 pg/ml (211-911) H 09/09/19 08:32 Folate 22.45 ng/ml (>5.38) 09/09/19 00:36 Procalcitonin 0.13 ng/ml (0-0.5) 09/09/19 00:36 Urine Color Dark Yellow 09/08/19 17:45 Urine Appearance Clear (Clear) 09/08/19 17:45 Urine pH 5.0 (4.5-7.5) 09/08/19 17:45 Ur Specific [place] 1.022 (1.000-1.030) 09/08/19 17:45 Urine Protein Trace (Negative) H 09/08/19 17:45 Urine Glucose (UA) Negative (Negative) 09/08/19 17:45 Urine Ketones 1+ (Negative) H 09/08/19 17:45 Urine Blood Negative (Negative) 09/08/19 17:45 Urine Nitrite Negative (Negative) 09/08/19 17:45 Urine Bilirubin Negative (Negative) 09/08/19 17:45 Urine Urobilinogen Negative (Negative) 09/08/19 17:45 Ur Leukocyte Esterase Negative (Negative) 09/08/19 17:45 Urine WBC (Auto) 1-5 /hpf (0-5) 09/08/19 17:45 Urine RBC (Auto) 0-4 /hpf (0-4) 09/08/19 17:45 U Hyaline Cast (Auto) 0 /lpf (0-5) 09/08/19 17:45 U Epithel Cells (Auto) 0-5 /lpf (0-5) 09/08/19 17:45 Urine Bacteria (Auto) Negative (Negative) 09/08/19 17:45 Nasal Screen MRSA (PCR) Negative (Negative) 09/09/19 Unknown Lyme Disease IgG Ab Negative (Negative) 09/12/19 05:49 Lyme Disease IgM Ab Negative (Negative) 09/12/19 05:49 COVID-19 PCR NEGATIVE (Negative) 09/08/19 20:00 Diagnostic Findings Patient: CHARLES JENNINGS Date: 09/08/19 MR#: [id number]: [id number] [facility] Acct ID:[id number]: Date: [address] [place] [address] Zip: [place] [address] Age: 74Location: 2N Sex: M Room/Bed: [facility] Att Phy: Destiny Henao, MDDiagnosis: WEAKNESS Charleen Phy: Luciano Huerta M.D.Service Date: 09/11/19 Fam Phy:Interpreting Phy: Abraham Oliver MD Admit Phy: Yolanda Oleary MD Ordering Phy: Destiny Henao MD cc: ~ MRI OF THE RIGHT ELBOW COMBO CLINICAL HISTORY: Fall. Right elbow pain. Erythema. Fever. COMPARISON STUDY: Radiographs of the right elbow dated 09/11/2019. TECHNIQUE: MRI of the right elbow is performed utilizing various T1 and T2- weighted sequences in the axial, sagittal, and coronal planes. Contrast-enhanced sequences are acquired following the IV administration of 6 cc of Gadavist. The examination is significantly compromised by motion artifact. FINDINGS: No marrow edema is identified to suggest fracture. There is no dislocation. The articular cartilage appears preserved. There is soft tissue edema identified around the elbow, greatest dorsally. No definite abnormal postcontrast enhancement is identified; however, this is not well evaluated due to failure of fat suppression. A fluid collection is partially visualized posterior to the olecranon process on axial image #10. This measures at least 2 cm. A large joint effusion is identified. Mild synovial thickening and enhancement is nonspecific. There is tendinopathy of the long head of the biceps tendon which is intact. The triceps tendon at its insertion is maintained. There is an age indeterminant rupture of the radial collateral ligament. Visualized portions of the ulnar collateral ligament appear intact. There is tendinopathy of the common flexor and common extensor tendons with partial-thickness tearing. No full-thickness tear is identified. Moderate intramuscular edema is present around the elbow. IMPRESSION: 1. Motion compromised examination. 2. Soft tissue edema is present around the elbow, greatest dorsally where there is a partially visualized organized fluid collection. The appearance is typical for olecranon bursitis. Clinical correlation will be essential. The sterility of this collection cannot be assessed by MRI. 3. No osseous abnormality is identified. 4. There is a large joint effusion with evidence of a nonspecific synovitis. 5. There is tendinopathy of the common flexor and common extensor tendons with partial-thickness tearing at the humeral attachments. No full-thickness tear is seen. 6. Suspect age indeterminant rupture of the radial collateral ligament. 7. Intramuscular edema is noted around the elbow and indicates a nonspecific myositis.
[2019-09-12] MEDS: ACETAMINOPHEN 500 MG TAB PO PRN (11:11)
--- NOTE | 2019-09-12 14:36 | Hospitalist Progress Note ---
Date of Service September 12, 2019 Assessment & Plan (1) Weakness: Mr. Fagan is a 74 yo male with underlying dementia, bullous pemphigoid, chronic atrial fibrillation, hyperlipidemia who presented to [facility] after being discharged from [facility] for re-evaluation of weakness and difficulty walking with a recent fall and admission for rapid atrial fibrillation. He was also noted to have a low-grade fever upon admission. - no source of infection found on admission, however his right elbow is red and swollen and with painful range of motion, ESR greater than 90, CRP elevated 18. See below under elbow pain -Blood cultures will be followed here and from [facility]-remain no growth to date here - weakness likely due to deconditioning and arthritic pain - at [place], he was treated for afib RVR after having unwitnessed fall at his personal care facility CT head negative, CT cervical spine negative for fracture X-ray of both knees, left elbow and pelvis/hips negative for fracture here he has pain in left hip and left leg as well as the right elbow, repeat x-ray left hip shows no fracture pain control with toradol, acetaminophen -Has a listed allergy to Codeine, try to avoid narcotics if possible PT/OT consulted, plan for SNF placement tomorrow (2) Elbow pain, right: With exquisite pain and worsening swelling and erythema of the right elbow with dependent 3+ edema on the right hand noted on 09/10 With painful range of motion X-rays negative for fracture but showed joint effusion and soft tissue edema ESR greater than 90, CRP elevated at 18 Had a low-grade fever upon admission which is now completely resolved -He did receive 1 dose of IV cefepime in the ER on admission but none since then He never had any leukocytosis Concern for septic arthritis versus hematoma given that he is on Eliquis versus occult fracture Orthopedics consulted-ordered MRI of the right elbow with and without contrast- showed no fracture, but with radial collateral ligament rupture, large joint effusion with nonspecific synovitis, small amount of olecranon bursitis, tendinopathy of common flexor and common extensor tendons with partial-thickness tearing at the humeral attachments, and intramuscular edema noted around the elbow consistent with nonspecific myositis Uric acid is normal at 4, no history of gout. Lyme disease titer is negative Elbow is overall much improved today after icing and elevation, erythema, edema improved, range of motion of elbow is improved, and hand edema is almost gone Orthopedic surgery thinks this is a traumatic hemarthrosis especially in the setting of Eliquis -No indication for antibiotics at this time -We will continue to follow ESR and CRP as are quite high which could be from the hemarthrosis -Continue acetaminophen for pain control -Continue icing to the elbow 3 times daily -Physical therapy Elbow/arm sling -We will plan for close follow-up with orthopedics -Continue to hold Eliquis today given hemarthrosis and possibility of needing needle aspiration by orthopedics in the near future (3) Fever: - Tmax 37.9 on day of admission and now resolved Did receive 1 dose of IV cefepime upon admission but none since then - WBC normal, no evidence of infection on work up in the ED, however with elevated sed rate and CRP and possible infection of the right elbow as above - no further antibiotics planned for now -Follow blood cultures-no growth to date -COVID 19 test is negative -Lyme titer checked given multiple painful joints-negative (4) Atrial fibrillation: Chronic atrial fibrillation With uncontrolled rates in the low 100s during the day which is now much improved with increased dose of metoprolol - on chronic anticoagulation with Eliqus-hold today in case of need for needle aspiration or procedure from orthopedics -Have increased metoprolol to 75 mg qAM for improved rate control -Continue diltiazem 240mg qAM and home digoxin 125 mcg once daily -No further need for continued telemetry monitoring as is stable (5) Bullous pemphigoid: Much improved compared to description and previous scanned in primary care notes Follows with dermatology as an outpatient -Continue home dose of methotrexate 15 mg p.o. once weekly on Saturdays and Benadryl as needed for itching (6) Dementia: - severity is unknown - continue home memantime -Supportive care (7) DVT prophylaxis: Eliquis now on hold Dispo: Continued stay but can downgrade from telemetry to medical/surgical Code: DNR/DNI, per correction documentation plan for rehab placement tomorrow COVID 19 test redone for placement purposes Admission and Anticipated Discharge Date Admission Date: September 08, 2019 Anticipated date of discharge: 09/13/19 Subjective Patient reports his elbow feels much better today. He denies other concerns. He remains very hard of hearing and pleasantly confused. He has been eating well. I discussed his case with the orthopedic surgery PA. Telemetry with atrial fibrillation with rates in the 80s to 90s Review of Systems Review of Systems: All systems reviewed & are unremarkable except as noted in HPI & below Physical Exam Constitutional: WD/WN, vitals as above Eyes: + anicteric sclerae ENMT: Ears: + hearing impairment Neck: trachea midline, no thyromegaly Respiratory: normal respiratory effort, lungs clear to auscultation Cardiovascular: Rate/Rhythm: regular rate and + irregularly irregular Heart Sounds: no murmur Extremities: no edema Chest (Breasts): Chest: + abnormal inspection of chest (pectus carinatum) Gastrointestinal (Abdomen): normal bowel sounds, soft, nontender, no hepatosplenomegaly Musculoskeletal: Extremities: no cyanosis and no clubbing Right lateral elbow with moderately reduced amount of erythema and edema from previous, with positive tenderness to palpation but much less than previous, range of motion of the right elbow is much improved especially with flexion. He is still unable to achieve complete extension at the elbow. Small amount of fluctuance over the olecranon bursa Skin: no rashes, warm and dry Neurologic: moves all extremities and awake; no focal motor deficits Psychiatric: Orientation: alert, oriented to person and cooperative Lymphatic: no lymphedema Results & Data Results & Data ([facility]) Vital Signs (Past 12 Hours) Vital Signs Temp Pulse Pulse Resp BP Pulse Ox 09/12/19 12:09 36.7 C 76 18 117/76 96 09/12/19 07:42 36.7 C 91 H 20 123/76 94 09/12/19 07:30 79 09/12/19 04:32 37.3 C 92 H 16 120/71 97 Laboratory Results 09/12/19 09/12/19 09/12/19 Range/Units 14:30 05:49 05:49 WBC (4.8-10.8) K/uL RBC (4.7-6.1) M/uL Hgb (14.0-18.0) g/dL Hct (42-52) % MCV (80-100) fL MCH (25-34) pg MCHC (32-36) g/dL RDW Std Deviation (36.4-46.3) fL RDW Coeff of Rashard (11.5-14.5) % Plt Count (130-400) K/uL MPV (7.4-10.4) fL Immature Gran % (Auto) % Neut % (Auto) % Lymph % (Auto) % Blanco % (Auto) % Eos % (Auto) % Baso % (Auto) % Immature Gran # (Auto) (0.00-0.02) K/uL Neut # (Auto) (1.4-6.5) K/uL Lymph # (Auto) (1.2-3.4) K/uL Blanco # (Auto) (0.11-0.59) K/uL Eos # (Auto) (0-0.5) K/uL Baso # (Auto) (0-0.2) K/uL ESR (0-14) mm/hr Sodium 135 L (136-145) mmol/L Potassium 3.6 (3.5-5.1) mmol/L Chloride 100 (98-107) mmol/L Carbon Dioxide 29 (21-32) mmol/L Anion Gap 6.0 (3-11) BUN 19 H (7-18) mg/dl Creatinine 0.59 L (0.6-1.4) mg/dl Est Cr Clr Drug Dosing 97.3 ml/min Est GFR ( Amer) 114.8 Est GFR (Non-Af Amer) 99.0 BUN/Creatinine Ratio 32.8 H (10-20) Glucose 95 (70-99) mg/dl Calcium 8.6 (8.5-10.1) mg/dl Magnesium 1.9 (1.8-2.4) mg/dl C-Reactive Protein 18.20 H (0-0.29) mg/dl Lyme Disease IgG Ab Negative (Negative) Lyme Disease IgM Ab Negative (Negative) SARS-CoV-2 RNA (RT-PCR) Pending 09/12/19 09/12/19 Range/Units 05:49 05:49 WBC 6.61 (4.8-10.8) K/uL RBC 3.45 L (4.7-6.1) M/uL Hgb 10.2 L (14.0-18.0) g/dL Hct 30.3 L (42-52) % MCV 87.8 (80-100) fL MCH 29.6 (25-34) pg MCHC 33.7 (32-36) g/dL RDW Std Deviation 47.6 H (36.4-46.3) fL RDW Coeff of Rashard 14.9 H (11.5-14.5) % Plt Count 334 (130-400) K/uL MPV 9.2 (7.4-10.4) fL Immature Gran % (Auto) 0.5 % Neut % (Auto) 70.0 % Lymph % (Auto) 14.2 % Blanco % (Auto) 12.1 % Eos % (Auto) 3.0 % Baso % (Auto) 0.2 % Immature Gran # (Auto) 0.03 H (0.00-0.02) K/uL Neut # (Auto) 4.63 (1.4-6.5) K/uL Lymph # (Auto) 0.94 L (1.2-3.4) K/uL Blanco # (Auto) 0.80 H (0.11-0.59) K/uL Eos # (Auto) 0.20 (0-0.5) K/uL Baso # (Auto) 0.01 (0-0.2) K/uL ESR > 90 H (0-14) mm/hr Sodium (136-145) mmol/L Potassium (3.5-5.1) mmol/L Chloride (98-107) mmol/L Carbon Dioxide (21-32) mmol/L Anion Gap (3-11) BUN (7-18) mg/dl Creatinine (0.6-1.4) mg/dl Est Cr Clr Drug Dosing ml/min Est GFR ( Amer) Est GFR (Non-Af Amer) BUN/Creatinine Ratio (10-20) Glucose (70-99) mg/dl Calcium (8.5-10.1) mg/dl Magnesium (1.8-2.4) mg/dl C-Reactive Protein (0-0.29) mg/dl Lyme Disease IgG Ab (Negative) Lyme Disease IgM Ab (Negative) SARS-CoV-2 RNA (RT-PCR) PG Care Time/CCT Total # of Minutes Spent Total Time Spent with Patient: Total time spent is greater than 50% in coordination of care (as documented) at patient's floor/unit and/or counseling patient: Coding Level of Care Code 50050 Subseq Hosp Care Lvl 3 Diagnoses Weakness R53.1 Elbow pain, right M25.521 Fever R50.9 Fever type: unspecified Atrial fibrillation I48.91 Atrial fibrillation type: unspecified Bullous pemphigoid L12.0 Dementia F03.90 DVT prophylaxis Z29.9 (1) Fever Fever type: unspecified Qualified Code(s): R50.9 - Fever, unspecified (2) Atrial fibrillation Atrial fibrillation type: unspecified Qualified Code(s): I48.91 - Unspecified atrial fibrillation
[2019-09-12] MEDS: DIGOXIN 0.125 MG TAB PO SCH (17:14)
[2019-09-12] MEDS: ATORVASTATIN 40 MG TAB PO SCH (20:44)
[2019-09-13 06:12] LABS: Basophils # (auto) 0.01 K/uL (0-0.2); Basophils % (auto) 0.2 %; Eosinophils # (auto) 0.29 K/uL (0-0.5); Eosinophils % (auto) 5.8 %; Hematocrit (blood only) 29.5 % (42-52); Immature Granulocytes # (auto) 0.04 K/uL (0.00-0.02); Immature Granulocytes % (auto) 0.8 %; Lymphocytes # (auto) 1.01 K/uL (1.2-3.4); Mean Corpuscular Hemoglobin 29.2 pg (25-34); Mean Corpuscular Hgb Conc 33.9 g/dL (32-36); Mean Corpuscular Volume 86.3 fL (80-100); Mean Platelet Volume 8.9 fL (7.4-10.4); Monocytes # (auto) 0.79 K/uL (0.11-0.59); Monocytes % (auto) 15.7 %; Neutrophils % (auto) 57.5 %; Platelet Count 351 K/uL (130-400); RDW Coefficient of Variation 15.2 % (11.5-14.5); RDW Standard Deviation 47.1 fL (36.4-46.3); Red Blood Count 3.42 M/uL (4.7-6.1); White Blood Count 5.04 K/uL (4.8-10.8)
[2019-09-13 06:48] LABS: BUN Creatinine Ratio 32.4 (10-20); C Reactive Protein 11.4 mg/dl (0-0.29); Calcium 8.4 mg/dl (8.5-10.1); Creatinine Clr Calc Pharmacy 97.3 ml/min; Est GFR (African American) 114.8; Potassium 3.6 mmol/L (3.5-5.1)
[2019-09-13] MEDS: dilTIAZem HCL 240 MG CAPCR PO SCH (08:25)
[2019-09-13] MEDS: METOPROLOL SUCC 25MG EXT REL TAB PO SCH (08:26)
[2019-09-13] MEDS: FOLIC ACID 1 MG TAB PO SCH (08:26)
[2019-09-13] MEDS: MEMANTINE HCL 5 MG TAB PO SCH (08:26)
[2019-09-13] MEDS: FUROSEMIDE 40 MG TAB PO SCH (08:26)
[2019-09-13] MEDS: CLOBETASOL PROPIONATE 0.05% OINT 15 GM TUBE EXT SCH (08:26)
[2019-09-13] MEDS: POTASSIUM CHLORIDE 10 MEQ TABCR PO SCH (08:26)
[2019-09-13] MEDS: FERROUS SULFATE 325 MG TAB PO SCH (08:26)
[2019-09-13] MEDS: ACETAMINOPHEN 500 MG TAB PO PRN (10:26)
--- NOTE | 2019-09-13 11:23 | Discharge Summary ---
Date of Service September 13, 2019 Admission HPI Per Admitting Provider Mr. Fagan is a 74 yo gentleman with a history of underlying dementia who presented to the ED for weakness and difficulty walking secondary to leg pain. Of note Mr. Fagan was taken to [place] ED 3 days ago and subsequently transferred to [facility] for management of A-fib with RVR. He was discharged from [facility] earlier today to his residence at [facility]. However, upon arrival to this facility, he was weak and unable to walk. Caregivers sent to him to [facility] with concern for sepsis. On review of records from [facility], patient's RVR was successfully treated with a diltiazem drip. His digoxin level at was drawn at 0.68. WBC was 6.33, blood cultures were obtained on 09/05. Head and C-spine CT showed no acute processes. XR of pelvis, left elbow and bilateral knees showed no acute pathology, although he does have bilateral knee osteoarthritis. Mr. Fagan was evaluated by physical therapy at [facility], who recommended SNF placement. However's patients insisted that he be discharged home to [facility]. [place] reportedly contacted [facility], who provided information that Mr. Fagan is a 2 assist to stand at baseline and stated they could provide appropriate care for him. ED course: Patient arrived with a temperature of 37.8 degrees celcius. He was tachycardic in the low 100s. COVID testing negative. WBC normal. Lactate 0.8. Blood cultures obtained. UA unremarkable. Hg 10.3, MCV 87. Na low at 133. CXR showing no acute process. EKG showing A-fib at 106. Principal Diagnosis Fall, generalized weakness, right elbow pain with hemarthrosis, tendinitis, and radial collateral ligament tear Discharge Exam Constitutional WD/WN, vitals as above Eyes + anicteric sclerae ENMT Ears: + hearing impairment Neck trachea midline, no thyromegaly Respiratory normal respiratory effort, lungs clear to auscultation Cardiovascular Rate/Rhythm: regular rate and + irregularly irregular Heart Sounds: no murmur Extremities: no edema Chest (Breasts) Chest: + abnormal inspection of chest (pectus carinatum) Gastrointestinal (Abdomen) normal bowel sounds, soft, nontender, no hepatosplenomegaly Musculoskeletal Extremities: no cyanosis and no clubbing Right elbow significantly improved on the day of discharge with no erythema, no edema, range of motion 5-130 degrees, no tenderness palpation laterally Right hand without any edema-significantly improved from previous Bilateral ankles with pain with range of motion, no effusion or erythema Skin no rashes, warm and dry Neurologic moves all extremities and awake; no focal motor deficits Psychiatric Orientation: alert, oriented to person and cooperative Lymphatic no lymphedema Discharge Data Allergies Allergy/AdvReac Type Severity Reaction Status Date / Time codeine Allergy Unknown Unverified 09/08/19 18:53 Consultations 09/08/19 20:07 ED Decision to Admit Stat 09/09/19 00:25 Consult Case Management - Discharge Planning Routine 09/09/19 10:46 Consult Health Information Management Stat 09/11/19 13:30 Consult Orthopedic Surgery Routine Procedures Performed Operation Date: 09/12/19 13:15 <No data on this case meets the specified criteria> Ordered Studies 09/11/19 13:27 MR elbow RT wo/w con Urgent Chest x-ray Hip/pelvis x-ray Right elbow x-ray Orbit x-ray Skull x-ray Hospital Course (1) Weakness: Mr. Fagan is a 74 yo male with underlying dementia, bullous pemphigoid, chronic atrial fibrillation, hyperlipidemia who presented to [facility] after being discharged from [facility] for re-evaluation of weakness and difficulty walking with a recent fall and admission for rapid atrial fibrillation. He was also noted to have a low-grade fever upon admission. - no source of infection found on admission, however his right elbow was red and swollen and with painful range of motion, ESR greater than 90, CRP elevated 18. See below under elbow pain -Blood cultures will be followed-remain no growth to date here - weakness likely due to deconditioning and arthritic pain - at [place], he was treated for afib RVR after having unwitnessed fall at his personal care facility CT head negative, CT cervical spine negative for fracture X-ray of both knees, left elbow and pelvis/hips negative for fracture here he has pain in left hip and left leg as well as the right elbow, repeat x-ray left hip shows no fracture pain control with acetaminophen, will add Voltaren gel -Has a listed allergy to Codeine, try to avoid narcotics if possible PT/OT consulted, plan for SNF placement today (2) Elbow pain, right: With exquisite pain and worsening swelling and erythema of the right elbow with dependent 3+ edema on the right hand noted on 09/10 With painful range of motion X-rays negative for fracture but showed joint effusion and soft tissue edema ESR greater than 90, CRP elevated at 18 which significantly improved by the day of discharge Had a low-grade fever upon admission which is now completely resolved for many days -He did receive 1 dose of IV cefepime in the ER on admission but none since then for many days and had no recurrence of fever He never had any leukocytosis Concern for septic arthritis versus hematoma given that he is on Eliquis versus occult fracture Orthopedics consulted-ordered MRI of the right elbow with and without contrast- showed no fracture, but with radial collateral ligament rupture, large joint effusion with nonspecific synovitis, small amount of olecranon bursitis, tendinopathy of common flexor and common extensor tendons with partial-thickness tearing at the humeral attachments, and intramuscular edema noted around the elbow consistent with nonspecific myositis Uric acid is normal at 4, no history of gout. Lyme disease titer is negative Elbow is significantly improved today after continued icing and elevation; erythema, edema resolved, and range of motion of elbow is much improved; and hand edema is resolved Orthopedic surgery thinks this is a traumatic hemarthrosis especially in the setting of Eliquis -No indication for antibiotics at this time -Would continue to follow ESR and CRP after discharge which could be from the h emarthrosis to ensure they return to normal -Continue acetaminophen for pain control -Continue icing to the elbow 3 times daily -Physical therapy Elbow/arm sling as tolerated -We will plan for close follow-up with orthopedics within 2 weeks -Okay to restart Eliquis -Voltaren gel to the right elbow and bilateral ankles 4 times daily (3) Fever: - Tmax 37.9 on day of admission and now resolved Did receive 1 dose of IV cefepime upon admission but none since then - WBC normal, no evidence of infection on work up in the ED, however with elevated sed rate and CRP and possible infection of the right elbow as above - no further antibiotics planned for now -Follow blood cultures-no growth to date -COVID 19 test is negative on 2 occasions -Lyme titer checked given multiple painful joints-negative (4) Atrial fibrillation: Chronic atrial fibrillation With uncontrolled rates in the low 100s during the day which is now much improved with increased dose of metoprolol - on chronic anticoagulation with Eliqus -Have increased metoprolol to 75 mg qAM for improved rate control -Continue diltiazem 240mg qAM and home digoxin 125 mcg once daily (5) Bullous pemphigoid: Much improved compared to description and previous scanned in primary care notes Follows with dermatology as an outpatient -Continue home dose of methotrexate 15 mg p.o. once weekly on Saturdays and Benadryl as needed for itching, clobetasol as needed (6) Dementia: - severity is moderate - continue home memantime -Supportive care (7) DVT prophylaxis: Eliquis Dispo: Stable for discharge to rehab Code: DNR/DNI, per [facility] documentation Discussed his care with his daily on the phone during the admission Total Time Total Time Spent Total Time Spent (In Minutes): Greater than 30 minutes Total Time Includes: Examination of the Patient, Discharge Planning and Me dication Reconciliation Discharge Plan Discharge Items Patient Disposition: Transfer [facility] Fac Reason For Visit: WEAKNESS Discharge Diagnosis: Weakness, fall, right elbow pain with tendinitis and hemarthrosis Condition on Discharge: Fair Activity: As commented below Bathing: No limitations Exercise/Sports: Gradually increase as tolerated Exercise Comment: With PT/OT Weightbearing: Full weightbearing Weightbearing Comment: Nonweightbearing right upper extremity Non-emergency contact: Primary Care Provider and Surgeon Call non-emergency contact if: you have any medication questions, your symptoms worsen, your pain is not controlled, your pain is worsening, your pain is unusual for you, your pain is concerning for you and you have a fever Follow-up/Referrals: Mauricio Robb, [Surgeon] - (Please follow-up within 2 weeks for your right elbow injury. ) Luciano Huerta [Primary Care Provider] - Diet: Heart Healthy Addtl Attending Provider Instructions: Continue to ice the right elbow 3 times a day. Please use Voltaren gel applied to right elbow and bilateral ankles for arthritis pain 4 times a day. Low-grade fever was likely secondary to hemarthrosis of the right elbow and inflammation. This is now resolved. COVID-19 testing was negative. For uncontrolled heart rate with atrial fibrillation, his metoprolol dosing was increased to 75 mg once daily. Pending Studies at Discharge: Yes (Final blood cultures) Stand-Alone Forms: My [facility] Skilled Items Patient informed of condition?: Yes DNR: Yes Discharge Level of Care: Skilled Communicable Disease: No Discharge Prognosis: Improving Lines: None Urinary Catheter: No Medications and DC Order Prescriptions: New metoprolol succinate 50 mg tablet extended release 24 hr 75 mg PO DAILY Qty: 45 RF: 0 acetaminophen 500 mg Tablet 1,000 mg PO Q8 PRN (Reason: pain) Qty: 30 RF: 0 diclofenac sodium [Voltaren] 1 % Gel 4 g EXT QID Qty: 100 RF: 0 Continued furosemide [Lasix] 40 mg Tablet 40 mg PO QAM RF: 0 atorvastatin [Lipitor] 40 mg tablet 40 mg PO HS RF: 0 ipratropium-albuterol 0.5 mg-3 mg(2.5 mg base)/3 mL Solution For Nebulization 3 ml INHALATION Q4H PRN (Reason: Shortness Of Breath Or Wheezing) RF: 0 diltiazem HCl [Cardizem CD] 240 mg Capsule,Extended Release 24hr 240 mg PO QAM RF: 0 clobetasol [Temovate] 0.05 % Cream 1 applic TOPICAL BID RF: 0 potassium chloride [K-Tab] 10 mEq Tablet Extended Release 10 meq PO BID RF: 0 methotrexate sodium 2.5 mg tablet 15 mg PO SA RF: 0 bisacodyl [Dulcolax (bisacodyl)] 10 mg Suppository 10 mg PA DAILY PRN (Reason: Constipation) RF: 0 ferrous sulfate 325 mg (65 mg iron) Tablet 325 mg PO QAM RF: 0 niacinamide [Niacin (niacinamide)] 500 mg Tablet 500 mg PO QAM RF: 0 diphenhydramine HCl [Benadryl Allergy] 25 mg Tablet 25 mg PO TID PRN (Reason: Itching) RF: 0 folic acid 1 mg Tablet 1 mg PO QAM RF: 0 digoxin [Digox] 125 mcg (0.125 mg) Tablet 125 mcg PO QAM RF: 0 Therems-M 27-0.4 mg Tablet 1 tab PO QAM RF: 0 memantine [Namenda] 5 mg tablet 5 mg PO BID RF: 0 Calmoseptine 0.44-20.6 % Ointment 1 applic TOPICAL BID PRN (Reason: Skin Irritation) RF: 0 Eliquis 5 mg Tablet 5 mg PO BID RF: 0 Discontinued acetaminophen [Tylenol] 325 mg Tablet 650 mg PO Q6H PRN (Reason: Pain) RF: 0 metoprolol succinate [Toprol XL] 50 mg Tablet Extended Release 24 Hr 50 mg PO QAM RF: 0 Discharge Orders: Discharge Order (Routine); Ordered 09/13/19 Ordered By: Destiny Henao Admission Data Admit Date/Time: 09/08/19 22:34 Attending Provider: Destiny Henao Admit Provider: Yolanda Oleary Primary Care Provider: Luciano Huerta Other Providers: Audrey Moreira ; Roberto Suazo ; Gorge Mandel Other Interventions: Discharge Summary Assessment (RN) Last Done: 09/13/19 10:38 Coding Level of Care Code D/C Day Management >30 mins Diagnoses Weakness R53.1 Elbow pain, right M25.521 Fever R50.9 Fever type: unspecified Atrial fibrillation I48.91 Atrial fibrillation type: unspecified Bullous pemphigoid L12.0 Dementia F03.90 DVT prophylaxis Z29.9
[2019-09-13] MEDS ORDERED: APIXABAN 5 MG TABLET PO ONE (11:45)
[2019-09-13] MEDS ORDERED: DICLOFENAC SOD 1% GEL 100 GM TUBE EXT SCH (13:00)
== END 2019-09-13 15:33 ==
LOC: ED 16:59 → 2N 22:34 → INTOOBSV 22:34 → SUATTDRO 22:34 → 2N 23:57
DX: Z88.5 Allergy status to narcotic agent; R53.1 Weakness; I48.20 Chronic atrial fibrillation, unspecified; M25.521 Pain in right elbow; L12.0 Bullous pemphigoid; F03.90 Unspecified dementia, unspecified severity, without behavioral disturbance, psychotic disturbance, mood disturbance, and anxiety; Z79.01 Long term (current) use of anticoagulants; R50.9 Fever, unspecified; Z79.899 Other long term (current) drug therapy